=== PATIENT | female | born 1965 | race Caucasian/White ===

== ENCOUNTER 2019-08-10 14:03 | Inpatient (IN) | payer OTHER ==
--- NOTE | 2019-08-10 14:21 | PDOC ---
History of Present Illness - General Stated Complaint: FALL Time Seen by Provider: 08/10/19 14:21 History Source: Patient Exam Limitations: No Limitations - History of Present Illness Initial Comments: 08/10/19 14:21 Leda Summers is a 54F with PMH obesity, spinal degenerative changes and lumbar disc herniation, chronic lumbago with bilateral sciatica, poorly controlled IDDM c/b BLE neuropathy, incontinence, non-ambulatory, COPD, presenting with fall this morning. Patient woke up and attempted to get out of bed, felt dizzy like the world was spinning, fell to the floor while trying to sit up on her rolling walker. Attempted to get up from the floor using her walker and fell over 10 times, once hitting her face on her dresser on the left side, denies LOC. Denies any pain or other new injuries to the rest of her body. Was having blurry vision, was unable to check her blood sugar, pushed her emergency bracelet and EMS called. Per EMS report, BGM 43, given glucagon and D10 and BGM improved. Denies chest pain, SOB, palpitations, GOOD prior to fall. Currently reports face pain and lower back pain with sciatica, denies vision changes, GOOD, neck pain, abd pain, urinary sx. Says she has been having nausea and vomiting over the last few months, denies any possibility of . PMD Dr. Amaro Lives at home with [employer] and cat. Has had multiple MSK surgeries to her legs and shoulder from falls, last vascular surgery to legs February 2019. 32 years ago with oopharectomy for ovarian cyst. R cataract surgery. Longtime smoker, quit last year. Allergies to Toradol and ASA, says Percocet works well for pain. Past History - Past Medical History Allergies/Adverse Reactions: Allergies Allergy/AdvReac Type Severity Reaction Status Date / Time Sulfa (Sulfonamide Allergy Mild Difficulty Verified 08/10/19 15:15 Antibiotics) Breathing [Sulfa(Sulfonamide Antibiotics)] nitrofurantoin Allergy Difficulty Verified 08/10/19 15:15 macrocrystalline Breathing [From Macrodantin] pentazocine lactate Allergy Verified 08/10/19 15:15 [From Talwin] aripiprazole [From Abilify] AdvReac Swelling Verified 08/10/19 15:15 aspirin AdvReac gastric Verified 08/10/19 15:15 ulcer bupropion HCl AdvReac cognitive Verified 08/10/19 15:15 [From Wellbutrin] function ketorolac tromethamine AdvReac Difficulty Verified 08/10/19 15:15 [From Toradol] Breathing NSAIDS (Non-Steroidal AdvReac gastric Verified 08/10/19 15:15 Anti-Inflamma ulcers statin drugs AdvReac muscle pain Uncoded 08/10/19 15:15 Home Medications: Ambulatory Orders Clonazepam [Klonopin] 1 mg PO TID 12/31/14 Clopidogrel Bisulfate [Plavix -] 75 mg PO DAILY 12/31/14 Docusate Sodium [Colace -] 100 mg PO BID 12/31/14 Escitalopram Oxalate [Lexapro -] 10 mg PO DAILY 12/31/14 Gabapentin [Neurontin -] 600 mg PO BID 12/31/14 Metaxalone [Skelaxin] 800 mg PO TID PRN 12/31/14 Lisinopril [Prinivil -] 2.5 mg PO DAILY 07/06/15 Atomoxetine HCl [Strattera] 100 mg PO DAILY 11/13/15 Topiramate [Topamax] 100 mg PO BID 11/13/15 Colesevelam HCl 1,875 mg PO BID 08/10/19 Ezetimibe [Zetia] 10 mg PO DAILY 08/10/19 Insulin Degludec [Tresiba] 55 unit SQ DAILY 08/10/19 Semaglutide [Ozempic] 1 mg SQ WEEKLY 08/10/19 Cardiac Disorders: Yes COPD: Yes CHF: Yes Diabetes: Yes (on insulin, has neuropathy) GI Disorders: Yes HTN: No Seizures: No - Surgical History Cardiac Surgery: Yes (angioplasty) Orthopedic Surgery: Yes (rt shoulder tendon repair 12/23/14) - Psycho Social/Smoking Cessation Hx Smoking History: Current some day smoker Have you smoked in the past 12 months: Yes Number of Cigarettes Smoked Daily: 20 'Breaking Loose' booklet given: 08/05/15 (given previous visit) Hx Alcohol Use: No Drug/Substance Use Hx: Yes Substance Use Type: Marijuana Hx Substance Use Treatment: No (none) Review of Systems - Review of Systems Able to Perform ROS?: Yes Constitutional: No: Chills, Fever, Unexplained wgt Loss HEENTM: Yes: Blurred Vision. No: Hearing Loss Respiratory: Yes: Cough. No: Shortness of Breath Cardiac (ROS): Yes: Lightheadedness. No: Chest Pain, Irregular Heart Rate, Palpitations, Syncope, Chest Tightness ABD/GI: Yes: Nausea, Vomiting : No: Symptoms Reported Musculoskeletal: Yes: Back Pain, Muscle Pain. No: Neck Pain Integumentary: Yes: Bruising (L eye) Neurological: Yes: Numbness, Weakness, Unsteady Gait, Dizziness. No: Headache Endocrine: No: Symptoms Reported Hematologic/Lymphatic: No: Symptoms Reported All Other Systems: Reviewed and Negative *Physical Exam - Physical Exam General Appearance: Yes: Nourished, Appropriately Dressed, Obese. No: Apparent Distress HEENT: positive: EOMI, Normal Voice, Symmetrical, Pharynx Normal (adentulous), Hearing Grossly Normal, Other (bruising and swelling to L upper orbit, EOMI intact without visual deficit). negative: ZAY (R pupil fixed, s/p cataract surgery), Scleral Icterus (R), Scleral Icterus (L), Pharyngeal Erythema, Tonsillar Exudate, Tonsillar Erythema Neck: positive: Trachea midline, Normal Thyroid, Supple, Decreased range of motion. negative: Tender, Rigid, Lymphadenopathy (R), Lymphadenopathy (L), Tender lateral, Tender midline Respiratory/Chest: positive: Lungs Clear, Normal Breath Sounds. negative: Chest Tender, Respiratory Distress, Accessory Muscle Use, Crackles, Rales, Rhonchi, Stridor, Wheezing Cardiovascular: positive: Regular Rhythm, Regular Rate. negative: Murmur Gastrointestinal/Abdominal: positive: Normal Bowel Sounds, Soft, Protuberent. negative: Tender, Distended, Guarding Musculoskeletal: positive: Normal Inspection, CVA Tenderness, Vertebral Tenderness (lumbar ~L3) Extremity: positive: Normal Capillary Refill, Normal Range of Motion (full passive ROM at hip, knee, ankle), Tender (anterior thighs, no evidenceo f bony deformity), Pelvis Stable. negative: Normal Inspection, Pedal Edema, Swelling, Calf Tenderness Integumentary: positive: Normal Color, Dry, Warm Neurologic: positive: national sales manager II-XII NML intact, Fully Oriented, Alert, Normal Mood/ Affect, Normal Response, Sensory Deficit (decreased sensation to legs below knees compared to thigh, intact to LT). negative: Motor Strength 5/5 (BLE: able to move toes spontaneously, but 1/5 to hip/knee/ankle flexion/extension, DP pulses intact, cap refill good. BUE: normal exam, 5/5 strength) ED Treatment Course - LABORATORY CBC & Chemistry Diagram: 08/10/19 15:37 08/10/19 15:37 - ADDITIONAL ORDERS Additional order review: Laboratory Results 08/10/19 14:15 POC Glucometer 86 08/10/19 14:15 POC Glucometer 86 Medical Decision Making - Medical Decision Making 08/10/19 15:39 Patient has chronic history of lower back pain and sciatica along with poorly controlled IDDM with neuropathy and falls presents by ambulance for eval after multiple falls and head/face injury with EMS BGM 48. Concerned for metabolic/cardiac causes of weakness and dizziness. Facial bruising present with some facial tenderness, low suspicion of fx and no suturing needed, has not had tetanus. No neck pain. No acutely new neuro exam deficits, patient at reported neuro baseline. Has tenderness to lumbar spine. - CMP/CBC/Mg/Phos for eval lytes/infection - CP/CXR/ECG for cardiac eval of dizziness - CT head/c-spine/facial bones/lumbar for eval trauma - Pelvis XR for eval trauma - UA/UC for eval UTI as cause of dizziness - 10mg oxycodone and lidoderm patch for pain 08/10/19 16:36 Labs notable for: - WBC 10.8 - Glu 70, giving 12.5mg D50 - AP 118 - CK 211, consistent with prolonged time supine - BNP 146 - trop negative 08/10/19 16:37 ECG shows NSR with HR 75, QRS 86, QTc 464, no ischemic changes or TWI 08/10/19 17:58 CXR and XR pelvis show no abnormalities on preliminary read Pending CT scan read at this time. 08/10/19 20:29 CT shows no acute ICH or fractures of skull, face, c-spine, or pelvis. Discussed dispo with patient. Unsafe for her to go home despite her protests to feed her cat. Reluctantly agrees to stay to discuss her medications in the AM with Dr. Amaro. Will admit to Med-Surg to [facility] for AM Sondra joyneral. 08/10/19 20:40 Discussed case with sherley Holden for admit to [facility] service Med Surg. Discharge - Discharge Information Problems reviewed: Yes Clinical Impression/Diagnosis: Fall Qualifiers: Encounter type: initial encounter Qualified Code(s): W19.XXXA - Unspecified fall, initial encounter Chronic lower back pain Qualifiers: Back pain laterality: midline Sciatica presence: with sciatica Sciatica laterality: bilateral sciatica Qualified Code(s): M54.41 - Lumbago with sciatica , right side Facial injury Qualifiers: Encounter type: initial encounter Qualified Code(s): S09.93XA - Unspecified injury of face, initial encounter Condition: Stable - Follow up/Referral Referrals: Rishi Horan [Non Staff, Medical] - - Patient Discharge Instructions - Post Discharge Activity
[2019-08-10] MEDS ORDERED: GlUCAGON HUMAN RECOMBINANT 1 MG/VIAL ONE (14:26)
[2019-08-10] MEDS ORDERED: oxyCODONE HCL 5 MG TABLET PO ONE (15:13)
[2019-08-10] MEDS ORDERED: SODIUM CHLORIDE 1,000 ML IV STA (15:13)
[2019-08-10] MEDS ORDERED: DIPHTH,PERTUSS(ACELL),TET 0.5 ML DISP.SYRIN IM ONE ×2 (15:19→16:10)
--- NOTE | 2019-08-10 15:19 | PDOC ---
Documentation entered by Adrian Chino SCRIBE, acting as scribe for Elaine Munguia DO. Elaine Munguia, DO: This documentation has been prepared by the Matti astorga Nirvannie, SCRIBE, under my direction and personally reviewed by me in its entirety. I confirm that the documentation accurately reflects all work, treatment, procedures, and medical decision making performed by me. Attending Attestation - Resident Resident Name: Rich Joy - ED Attending Attestation I have performed the following: I have examined & evaluated the patient, The case was reviewed & discussed with the resident, I agree w/resident's findings & plan, Exceptions are as noted - HPI HPI: 08/10/19 15:12 The patient is a 54 year old female, with a significant past medical history of poorly controlled DM, diabetic neuropathy, COPD, sciatica, and chronic back pain , who presents to the emergency department via EMS s/p multiple falls. As per patient, she woke up this morning increasingly dizzy and attempting to get out of bed to her rollator when she fell approximately 10 times prompting her to call for EMS. She is unaware of what she hit her head on. She is unaware of her last tetanus shot. She denies any urinary or bowel incontinence. She denies recent chest pain or shortness of breath. She denies recent fevers, chills, headache or dizziness. She denies recent nausea, vomiting, diarrhea or constipation. She denies recent dysuria, frequency, urgency or hematuria. Allergies: As per nursing notes. Primary Care Physician: Dr. Amaro - Physicial Exam PE: 08/10/19 15:44 Constitutional: Awake, alert, oriented. No acute distress. Head: Normocephalic. +Left supraocular bruising. No eye involvement. Eyes: PERRL. EOMI. Conjunctivae are not pale. ENT: +Adentulous. +Dry mucous membranes. Posterior pharynx without exudates or erythema. Uvula midline. Neck: No paraspinal or midline cervical tenderness. Supple. Full ROM. No lymphadenopathy. Cardiovascular: Regular rate. Regular rhythm. S1, S2 regular. Distal pulses are 2+ and symmetric. Pulmonary/Chest: No evidence of respiratory distress. Clear to auscultation bilaterally No wheezing, rales or rhonchi. Abdominal: Soft and non-distended. There is no tenderness. No rebound, guarding or rigidity. No organomegaly. No palpable masses. Good bowel sounds. Back: +Midline lumbar spine tenderness. No CVA tenderness. Musculoskeletal: No edema. No cyanosis. No clubbing. No calf tenderness. Radial/pedal pulses are intact and 2+ bilaterally Skin: Skin is warm and dry. No petechiae. No purpura. Neurological: +Decreased strength to the blt LE. UE strength intact. Alert and oriented to person, place, and time. Cranial nerves II-XII are grossly intact. Normal speech. No sensory deficits. Psychiatric: Good eye contact. Normal interaction, affect and behavior. - Medical Decision Making 08/10/19 15:17 a/p: 54yo female with multiple falls this am -pt with head injury, loc, facial hematoma, neck pain and lbp -pt with chronic weakness to b/l LE and decreased sensation below the knees b/l which is chronic -pt uses a rollator walker with a seat -pt with multiple complaints of weakness and hx of herniated discs in her back -pt with chronic pain -pt arrives with borderline bp and dry mm -will send labs, will obtain imaging, will give ivf hydration -will update tetanus 08/10/19 15:20 pt with low blood glu in field, received glucagon suspect multiple falls from hypoglycemia but now with closed head injury and facial hematoma 08/10/19 16:26 cbc reviewed and stable chem pending 08/10/19 16:35 glu 70 labs reviewed will straight cath for urine pt pending imaging will give 1/2 amp d50 for glu Heart Score/ECG Review - ECG Intrepretation Comment:: 08/10/19 16:04 sinus at 75, nl axis, nl interval, t wave flattening diffusely, no acute st changes
[2019-08-10] MEDS ORDERED: LIDOCAINE 5% TOPICAL PATCH TP ONE (15:47)
[2019-08-10] MEDS ORDERED: oxyCODONE HCL 5 MG TABLET ONE (15:50)
[2019-08-10 16:03] LABS: BASO % 0.5 % (0-2.0); EOS % 0.2 % (0-4.5); HEMATOCRIT 35.8 % (32.4-45.2); HEMOGLOBIN 11.6 GM/dL (10.7-15.3); LYMPH % 21.5 % (8-40); MCH 27.1 pg (25.7-33.7); MCHC 32.3 g/dl (32.0-36.0); MEAN PLT VOLUME 10.3 fl (7.5-11.1); MONO % 6.9 % (3.8-10.2); NEUT % 70.9 % (42.8-82.8); PLATELET COUNT 194 K/MM3 (134-434); RBC 4.26 M/mm3 (3.60-5.2); RDW 15.1 % (11.6-15.6); WHITE BLOOD COUNT 10.8 K/mm3 (4.0-10.0)
[2019-08-10] MEDS ORDERED: LIDOCAINE 5% TOPICAL PATCH ONE (16:10)
[2019-08-10 16:17] LABS: INR 1.06 (0.83-1.09); PROTHROMBIN TIME (PATIENT) 12.5 SEC (9.7-13.0)
[2019-08-10 16:20] LABS: ACTIVATED PTT 31.9 SECONDS (25.2-36.5)
[2019-08-10 16:27] LABS: ALBUMIN 3.3 g/dl (3.4-5.0); ALK PHOS 118 U/L (45-117); ANION GAP 6 MMOL/L (8-16); BILIRUBIN,TOTAL 0.3 mg/dL (0.2-1); BLOOD UREA NITROGEN 13.8 mg/dL (7-18); CALCIUM 9.2 mg/dL (8.5-10.1); CHLORIDE 108 mmol/L (98-107); CO2 24 mmol/L (21-32); CREATININE 0.8 mg/dL (0.55-1.3); GLUCOSE,RANDOM 70 mg/dL (74-106); MAGNESIUM 2.2 mg/dL (1.8-2.4); PHOSPHOROUS 2.7 mg/dL (2.5-4.9); SGOT/AST 19 U/L (15-37); SGPT/ALT 18 U/L (13-61); SODIUM 138 mmol/L (136-145); TOT PROT 6.6 g/dl (6.4-8.2)
[2019-08-10] MEDS ORDERED: DEXTROSE 50%-WATER - 25 GM/50 ML VIAL IVPUSH ONE (16:35)
[2019-08-10] MEDS ORDERED: DEXTROSE 50%-WATER - 25 GM/50 ML VIAL ONE (16:38)
[2019-08-10 19:07] LABS: PH,URINE 7.5 (5.0-8.0); URINE APPEARANCE Cloudy; URINE BILIRUBIN Negative (NEGATIVE); URINE COLOR Yellow; URINE GLUCOSE (UA) Negative (NEGATIVE); URINE KETONE Trace (NEGATIVE); URINE LEUK ESTERASE 1+ (NEGATIVE); URINE NITRITE Negative (NEGATIVE); URINE PROTEIN Trace (NEGATIVE); URINE UROBILINOGEN 0.2 mg/dL (0.2-1.0)
[2019-08-10 19:19] LABS: EPI CELLS 7.2 /HPF (0-5/HPF); HYALINE CASTS 44.08 /lpf (0-8); URINE BACTERIA 12696.9 /hpf (NEGATIVE); URINE RBC 26.5 /hpf (0-4); URINE WBC 13.8 /hpf (0-5)
[2019-08-10] MEDS ORDERED: METHOCARBAMOL 750 MG TABLET PO ONE (20:09)
[2019-08-10] MEDS ORDERED: METHOCARBAMOL 500 MG TABLET ONE (20:16)
--- NOTE | 2019-08-10 20:55 | HP ---
Admitting History and Physical - Primary Care Physician PCP: Karthik Amaro - Admission Chief Complaint: s/p Fall, Generalized Pain, Unable to Ambulate History of Present Illness: This is a 54 y/o woman with a PMHx of obesity, spinal degenerative changes and lumbar disc herniation, chronic lumbago with bilateral sciatica, poorly controlled IDDM c/b BLE neuropathy, incontinence, non-ambulatory, COPD. Who presents to the ED s/p Fall, unable to ambulate, pain. Patient reports waking up this morning feeling increasingly dizzy, attempting to get out of bed to her rollator, when she fell approximately 10 times prompting her to call for EMS. She reports not being able to get herself up from the floor. She is unaware of what she hit her head on. She is unaware of her last tetanus shot. She denies any urinary or bowel incontinence. She denies recent chest pain or shortness of breath. She denies recent fevers, chills, headache or dizziness. She denies recent nausea, vomiting, diarrhea or constipation. She denies recent dysuria, frequency, urgency or hematuria. History Source: Patient Limitations to Obtaining History: Clinical Condition, Poor Historian - Past Medical History Pulmonary: Yes: COPD Musculoskeletal: Yes: Chronic low back pain, Other Endocrine: Yes: Diabetes Mellitus - Smoking History Smoking history: Current some day smoker Have you smoked in the past 12 months: Yes Aproximately how many cigarettes per day: 20 If you are a former smoker, when did you quit?: 04/03/2019 - Alcohol/Substance Use Hx Alcohol Use: No History of Substance Use: reports: None - Social History Usual Living Arrangement: Yes: Alone ADL: Support Services ([employer]) History of Recent Travel: No Home Medications - Allergies Allergies/Adverse Reactions: Allergies Allergy/AdvReac Type Severity Reaction Status Date / Time Sulfa (Sulfonamide Allergy Mild Difficulty Verified 08/10/19 15:15 Antibiotics) Breathing [Sulfa(Sulfonamide Antibiotics)] nitrofurantoin Allergy Difficulty Verified 08/10/19 15:15 macrocrystalline Breathing [From Macrodantin] pentazocine lactate Allergy Verified 08/10/19 15:15 [From Talwin] aripiprazole [From Abilify] AdvReac Swelling Verified 08/10/19 15:15 aspirin AdvReac gastric Verified 08/10/19 15:15 ulcer bupropion HCl AdvReac cognitive Verified 08/10/19 15:15 [From Wellbutrin] function ketorolac tromethamine AdvReac Difficulty Verified 08/10/19 15:15 [From Toradol] Breathing NSAIDS (Non-Steroidal AdvReac gastric Verified 08/10/19 15:15 Anti-Inflamma ulcers statin drugs AdvReac muscle pain Uncoded 08/10/19 15:15 - Home Medications Home Medications: Ambulatory Orders Clonazepam [Klonopin] 1 mg PO TID 12/31/14 Clopidogrel Bisulfate [Plavix -] 75 mg PO DAILY 12/31/14 Docusate Sodium [Colace -] 100 mg PO BID 12/31/14 Escitalopram Oxalate [Lexapro -] 10 mg PO DAILY 12/31/14 Gabapentin [Neurontin -] 600 mg PO BID 12/31/14 Metaxalone [Skelaxin] 800 mg PO TID PRN 12/31/14 Lisinopril [Prinivil -] 2.5 mg PO DAILY 07/06/15 Atomoxetine HCl [Strattera] 100 mg PO DAILY 11/13/15 Topiramate [Topamax] 100 mg PO BID 11/13/15 Colesevelam HCl 1,875 mg PO BID 08/10/19 Ezetimibe [Zetia] 10 mg PO DAILY 08/10/19 Insulin Degludec [Tresiba] 55 unit SQ DAILY 08/10/19 Semaglutide [Ozempic] 1 mg SQ WEEKLY 08/10/19 Family Medical History Family History: Unable to Obtain Review of Systems - Review of Systems Constitutional: reports: Weakness Eyes: reports: No Symptoms HENT: reports: No Symptoms Neck: reports: No Symptoms Cardiovascular: reports: No Symptoms Respiratory: reports: No Symptoms Gastrointestinal: reports: No Symptoms Genitourinary: reports: No Symptoms Breasts: reports: No Symptoms Reported Musculoskeletal: reports: Back Pain, Extremity Pain, Joint Pain, Muscle Pain Integumentary: reports: Bruising Neurological: reports: Unsteady Gait, Weakness Endocrine: reports: No Symptoms Hematology/Lymphatic: reports: No Symptoms Psychiatric: reports: No Symptoms Pain Intensity: 7 Physical Examination Vital Signs: Vital Signs Temperature 98.2 F 08/10/19 18:29 Pulse Rate 86 08/10/19 18:29 Respiratory Rate 18 08/10/19 18:29 Blood Pressure 118/51 L 08/10/19 18:29 O2 Sat by Pulse Oximetry (%) 100 08/10/19 18:29 Constitutional: Yes: Anxious, Mild Distress, Obese, Poor Hygeine Eyes: Yes: WNL, Conjunctiva Clear, EOM Intact, PERRL HENT: Yes: Other (ecchymotic brusing to left forehead) Cardiovascular: Yes: Regular Rate and Rhythm, S1, S2 Respiratory: Yes: Diminished Gastrointestinal: Yes: WNL, Normal Bowel Sounds, Soft, Abdomen, Obese ...Rectal Exam: Yes: Deferred Renal/: Yes: WNL Breast(s): Yes: WNL Musculoskeletal: Yes: Back Pain, Muscle Pain, Muscle Weakness Extremities: Yes: WNL Edema: No Peripheral Pulses WNL: Yes Integumentary: Yes: Bruising Neurological: Yes: Alert, Oriented, Cran Nerves II-XII Intact ...Motor Strength: LUE (4/5), LLE (2/5), RUE (4/5), RLE (2/5) Psychiatric: Yes: Alert, Oriented, Other (Flat Affect) Labs: CBC, BMP 08/10/19 15:37 08/10/19 15:37 Laboratory Results - last 24 hr 08/10/19 08/10/19 08/10/19 14:15 15:37 15:37 WBC 10.8 H RBC 4.26 Hgb 11.6 Hct 35.8 MCV 84.0 MCH 27.1 MCHC 32.3 RDW 15.1 Plt Count 194 MPV 10.3 D Absolute Neuts (auto) 7.6 Neutrophils % 70.9 Lymphocytes % 21.5 Monocytes % 6.9 Eosinophils % 0.2 Basophils % 0.5 Nucleated RBC % 0 PT with INR INR PTT (Actin FS) Sodium 138 Potassium 4.0 Chloride 108 H Carbon Dioxide 24 Anion Gap 6 L BUN 13.8 Creatinine 0.8 Est GFR (CKD-EPI)AfAm 95.52 Est GFR (CKD-EPI)NonAf 82.42 POC Glucometer 86 Random Glucose 70 L Calcium 9.2 Phosphorus 2.7 Magnesium 2.2 Total Bilirubin 0.3 AST 19 ALT 18 Alkaline Phosphatase 118 H Creatine Kinase 211 H Creatine Kinase Index 1.3 CK-MB (CK-2) 2.9 Troponin I < 0.02 B-Natriuretic Peptide Total Protein 6.6 Albumin 3.3 L Urine Color Urine Appearance Urine pH Ur Specific [place] Urine Protein Urine Glucose (UA) Urine Ketones Urine Blood Urine Nitrite Urine Bilirubin Urine Urobilinogen Ur Leukocyte Esterase Urine WBC (Auto) Urine RBC (Auto) Urine Casts (Auto) U Pathogenic Cast Auto U Epithel Cells (Auto) U Sm Round Cell (Auto) Urine Bacteria (Auto) 08/10/19 08/10/19 08/10/19 15:37 15:37 18:33 WBC RBC Hgb Hct MCV MCH MCHC RDW Plt Count MPV Absolute Neuts (auto) Neutrophils % Lymphocytes % Monocytes % Eosinophils % Basophils % Nucleated RBC % PT with INR 12.50 INR 1.06 PTT (Actin FS) 31.9 Sodium Potassium Chloride Carbon Dioxide Anion Gap BUN Creatinine Est GFR (CKD-EPI)AfAm Est GFR (CKD-EPI)NonAf POC Glucometer Random Glucose Calcium Phosphorus Magnesium Total Bilirubin AST ALT Alkaline Phosphatase Creatine Kinase Creatine Kinase Index CK-MB (CK-2) Troponin I B-Natriuretic Peptide 146.8 H Total Protein Albumin Urine Color Yellow Urine Appearance Cloudy Urine pH 7.5 D Ur Specific [place] 1.015 Urine Protein Trace Urine Glucose (UA) Negative Urine Ketones Trace Urine Blood Negative Urine Nitrite Negative Urine Bilirubin Negative Urine Urobilinogen 0.2 Ur Leukocyte Esterase 1+ H Urine WBC (Auto) 13.8 Urine RBC (Auto) 26.5 Urine Casts (Auto) 44.08 U Pathogenic Cast Auto none U Epithel Cells (Auto) 7.2 U Sm Round Cell (Auto) none Urine Bacteria (Auto) 51005.9 Intake & Output 08/08/19 08/09/19 08/10/19 08/11/19 23:59 23:59 23:59 23:59 Intake Total 300 Output Total 75 Balance -75 300 Weight 89.358 kg 106.458 kg Current Medications Generic Name Dose Route Start Last Admin Trade Name Freq PRN Reason Stop Dose Admin Acetaminophen 650 mg 08/11/19 08:57 Tylenol - PO Q6H PRN PAIN LEVEL 4 - 6 Clonazepam 1 mg 08/11/19 14:00 Klonopin - PO TID JAYCEE Clopidogrel Bisulfate 75 mg 08/11/19 10:00 08/11/19 09:40 Plavix - PO 75 mg DAILY JAYCEE Administration Docusate Sodium 100 mg 08/11/19 10:00 08/11/19 09:45 Colace - PO 100 mg BID JAYCEE Administration Ezetimibe 10 mg 08/11/19 10:00 08/11/19 09:45 Zetia - PO 10 mg DAILY JAYCEE Administration Escitalopram Oxalate 10 mg 08/11/19 10:00 08/11/19 09:43 Lexapro - PO 10 mg DAILY JAYCEE Administration Gabapentin 600 mg 08/11/19 10:00 08/11/19 09:41 Neurontin - PO 600 mg BID JAYCEE Administration Insulin Aspart 1 vial 08/11/19 11:00 Novolog Vial Sliding Scale - SQ ACHS JAYCEE Protocol Lidocaine 1 patch 08/11/19 10:00 08/11/19 09:43 Lidoderm Patch - TP 1 patch DAILY JAYCEE Administration Lisinopril 2.5 mg 08/11/19 10:00 08/11/19 09:40 Prinivil PO 2.5 mg DAILY JAYCEE Administration Miscellaneous 1 each 08/11/19 22:00 Lidoderm Patch Removal MC DAILY@2200 JAYCEE Non-Formulary Medication 800 mg 08/11/19 08:24 Metaxalone [Skelaxin] PO TID PRN MUSCLE SPASMS Topiramate 100 mg 08/11/19 10:00 08/11/19 09:44 Topamax - PO 100 mg BID JAYCEE Administration Imaging - Results Chest X-ray: Image Reviewed X-ray: Image Reviewed Cat Scan: Image Reviewed EKG: Image Reviewed Problem List - Problems (1) Fall Code(s): W19.XXXA - UNSPECIFIED FALL, INITIAL ENCOUNTER Qualifiers: Encounter type: initial encounter Qualified Code(s): W19.XXXA - Unspecified fall, initial encounter (2) Generalized weakness Code(s): R53.1 - WEAKNESS (3) Facial injury Code(s): S09.93XA - UNSPECIFIED INJURY OF FACE, INITIAL ENCOUNTER Qualifiers: Encounter type: initial encounter Qualified Code(s): S09.93XA - Unspecified injury of face, initial encounter (4) Chronic lower back pain Code(s): M54.5 - LOW BACK PAIN; G89.29 - OTHER CHRONIC PAIN Qualifiers: Back pain laterality: midline Sciatica presence: with sciatica Sciatica laterality: bilateral sciatica Qualified Code(s): M54.41 - Lumbago with sciatica, right side; M54.42 - Lumbago with sciatica, left side; G89.29 - Other chronic pain (5) Anxiety disorder Code(s): F41.9 - ANXIETY DISORDER, UNSPECIFIED (6) Degenerative cervical spinal stenosis Code(s): M48.02 - SPINAL STENOSIS, CERVICAL REGION (7) Neuropathy Code(s): G62.9 - POLYNEUROPATHY, UNSPECIFIED (8) COPD (chronic obstructive pulmonary disease) Code(s): J44.9 - CHRONIC OBSTRUCTIVE PULMONARY DISEASE, UNSPECIFIED (9) Fibromyalgia Code(s): M79.7 - FIBROMYALGIA (11) Bipolar disorder Code(s): F31.9 - BIPOLAR DISORDER, UNSPECIFIED (12) Osteoarthritis Code(s): M19.90 - UNSPECIFIED OSTEOARTHRITIS, UNSPECIFIED SITE (13) Nicotine dependence Code(s): F17.200 - NICOTINE DEPENDENCE, UNSPECIFIED, UNCOMPLICATED Assessment/Plan This is a 54 y/o woman with a PMHx of poorly controlled DM, Diabetic Neuropathy , COPD, Sciatica, Chronic Back pain. Admitted for Generalized Weakness, s/p Fall Unsteady Gait, Chronic Back Pain for further evaluation of their emergent condition. Plan: Admit s/p fall secondary Likely due to generalized weakness vs hypoglycemic event vs diabetic neuropathy Head CT- neg ICH, mass or trauma C- Spine- neg fx, subluxation Hip/Pelvis Xray- neg fx PT eval Case Management for STR or SNF- pt lives alone has [employer] for 30hrs/week Neuro checks Neuro vascular checks Fall precautions Consider Spine consult- hx herniated discs, increased weakness Monitor CBC, BMP Monitor vitals Continue home meds O2 Duonebs BGMs ISS Low na, Diabetic Diet DVT ppx- OOB, SCDs, Heparin SQ Dispo: Requires Inpatient Care Visit type - Emergency Visit Emergency Visit: Yes ED Registration Date: 08/10/19 Care time: The patient presented to the Emergency Department on the above date and was hospitalized for further evaluation of their emergent condition. - New Patient This patient is new to me today: Yes Date on this admission: 08/10/19 - Critical Care Critical Care patient: No
[2019-08-10] MEDS ORDERED: LIDOCAINE PATCH REMOVAL MC SCH (22:00)
[2019-08-10] MEDS ORDERED: ACETAMINOPHEN 325 MG TABLET (FP) PO ONE (22:20)
[2019-08-11 01:41] VITALS: BMI 39.2
[2019-08-11] MEDS ORDERED: LIDOCAINE PATCH REMOVAL MC ONE (04:00)
[2019-08-11] MEDS ORDERED: oxyCODONE HCL 5 MG TABLET PO ONE (04:30)
[2019-08-11 07:29] LABS: BASO % 0.6 % (0-2.0); EOS % 0.6 % (0-4.5); HEMATOCRIT 34.5 % (32.4-45.2); HEMOGLOBIN 11.3 GM/dL (10.7-15.3); LYMPH % 28.9 % (8-40); MCH 27.3 pg (25.7-33.7); MCHC 32.6 g/dl (32.0-36.0); MEAN CELL VOLUME 83.5 fl (80-96); MONO % 9.3 % (3.8-10.2); NEUT % 60.6 % (42.8-82.8); PLATELET COUNT 185 K/MM3 (134-434); RBC 4.14 M/mm3 (3.60-5.2); RDW 15.4 % (11.6-15.6); WHITE BLOOD COUNT 8.6 K/mm3 (4.0-10.0)
[2019-08-11 07:42] LABS: CALCIUM 9.2 mg/dL (8.5-10.1); POTASSIUM 4.7 mmol/L (3.5-5.1)
[2019-08-11] MEDS ORDERED: PATIENT'S OWN MEDICATION (NON-FORMULARY) (Metaxalone [Skelaxin] 800 MG) PO PRN (08:24)
--- NOTE | 2019-08-11 08:50 | PN ---
Progress Note, Physician Chief Complaint: Fall Chronic Lower Back Pain History of Present Illness: Previous notes and events reviewed awake and alert NAD denies dizziness complain of cervical tenderness denies chest pain or SOB - Current Medication List Current Medications: Active Medications Clopidogrel Bisulfate (Plavix -) 75 mg PO DAILY [facility] Docusate Sodium (Colace -) 100 mg PO BID [facility] Ezetimibe (Zetia -) 10 mg PO DAILY [facility] Escitalopram Oxalate (Lexapro -) 10 mg PO DAILY [facility] Gabapentin (Neurontin -) 600 mg PO BID [facility] Insulin Aspart (Novolog Vial Sliding Scale -) 1 vial SQ ACHS JAYCEE; Protocol Non-Formulary Medication (Clonazepam [Klonopin]) 1 mg PO TID [facility] Non-Formulary Medication (Lisinopril [Prinivil -]) 2.5 mg PO DAILY [facility] Non-Formulary Medication (Metaxalone [Skelaxin]) 800 mg PO TID PRN PRN Reason: MUSCLE SPASMS Topiramate (Topamax -) 100 mg PO BID [facility] - Objective Vital Signs: Vital Signs Temperature 97.7 F 08/11/19 07:31 Pulse Rate 91 H 08/11/19 07:31 Respiratory Rate 20 08/11/19 07:31 Blood Pressure 113/91 08/11/19 07:31 O2 Sat by Pulse Oximetry (%) 96 08/11/19 01:42 Constitutional: Yes: No Distress, Calm, Obese Eyes: Yes: Conjunctiva Clear, Other (L periorbital ecchymosis and tenderness) Neck: Yes: Other (cervical tenderness) Cardiovascular: Yes: Regular Rate and Rhythm Respiratory: Yes: Regular, CTA Bilaterally Gastrointestinal: Yes: Normal Bowel Sounds, Soft, Abdomen, Obese Genitourinary: Yes: Incontinence Musculoskeletal: Yes: Muscle Weakness Extremities: Yes: WNL Edema: No Neurological: Yes: Alert, Oriented Psychiatric: Yes: Alert, Oriented Labs: CBC, BMP 08/11/19 06:20 08/11/19 06:20 INR, PTT INR 1.06 (0.83-1.09) 08/10/19 15:37 Problem List - Problems (1) Chronic lower back pain Assessment/Plan: -Lidocaine patch -Fall precaution -PT -pain control -Lumbar CT scan result pending Code(s): M54.5 - LOW BACK PAIN; G89.29 - OTHER CHRONIC PAIN Qualifiers: Back pain laterality: midline Sciatica presence: with sciatica Sciatica laterality: bilateral sciatica Qualified Code(s): M54.41 - Lumbago with sciatica, right side; M54.42 - Lumbago with sciatica, left side; G89.29 - Other chronic pain (2) Facial injury Assessment/Plan: -Facial CT scan results pending -Head CT scan results pending -pain control -neuro checks q4h to monitor for neuro deficit Code(s): S09.93XA - UNSPECIFIED INJURY OF FACE, INITIAL ENCOUNTER Qualifiers: Encounter type: initial encounter Qualified Code(s): S09.93XA - Unspecified injury of face, initial encounter (3) Fall Assessment/Plan: -Fall precautions -PT -neuro checks q4h -UC pending Code(s): W19.XXXA - UNSPECIFIED FALL, INITIAL ENCOUNTER Qualifiers: Encounter type: initial encounter Qualified Code(s): W19.XXXA - Unspecified fall, initial encounter (4) Anxiety disorder Assessment/Plan: -Klonopin TID -Lexapro Code(s): F41.9 - ANXIETY DISORDER, UNSPECIFIED (5) COPD (chronic obstructive pulmonary disease) Assessment/Plan: -O2 via NC -keep SpO2 >90% -bronchodilators prn Code(s): J44.9 - CHRONIC OBSTRUCTIVE PULMONARY DISEASE, UNSPECIFIED (6) IDDM Assessment/Plan: -BGM ACHS -ISS -Tresiba -HgA1c -diabetic diet Assessment/Plan see problem list dvt ppx
[2019-08-11] MEDS ORDERED: ACETAMINOPHEN 325 MG TABLET (FP) PO PRN (08:57)
[2019-08-11] MEDS: LISINOPRIL 5 MG TABLET (FP) PO SCH (09:40)
[2019-08-11] MEDS: CLOPIDOGREL BISULFATE 75 MG TABLET (FP) PO SCH (09:40)
[2019-08-11] MEDS: GABAPENTIN 300 MG CAPSULE PO SCH ×2 (09:41→22:47)
[2019-08-11] MEDS: LIDOCAINE 5% TOPICAL PATCH TP SCH (09:43)
[2019-08-11] MEDS: ESCITALOPRAM OXALATE 10 MG TABLET PO SCH (09:43)
[2019-08-11] MEDS: TOPIRAMATE 100 MG TABLET PO SCH ×2 (09:44→22:47)
[2019-08-11] MEDS: DOCUSATE SODIUM 100 MG CAPSULE (FP) PO SCH ×2 (09:45→22:48)
[2019-08-11] MEDS: EZETIMIBE 10 MG TABLET (FP) PO SCH (09:45)
[2019-08-11] MEDS: INSULIN SLIDING SCALE (NOVOLOG) 1 VIAL SQ SCH ×3 (12:29→22:57)
--- NOTE | 2019-08-11 12:35 | EKG ---
Test Reason : Blood Pressure : / mmHG Vent. Rate : 075 BPM Atrial Rate : 075 BPM P-R Int : 148 ms QRS Dur : 086 ms QT Int : 416 ms P-R-T Axes : 064 069 053 degrees QTc Int : 464 ms POOR DATA QUALITY, INTERPRETATION MAY BE ADVERSELY AFFECTED NORMAL SINUS RHYTHM NONSPECIFIC ST AND T WAVE ABNORMALITY ABNORMAL ECG WHEN COMPARED WITH ECG OF 24-SEP-2010 10:31, NO SIGNIFICANT CHANGE WAS FOUND Confirmed by LELIA LIZARRAGA MD ([id number]) on 08/11/2019 12:35:23 PM Referred By: Confirmed By:LELIA LIZARRAGA MD
[2019-08-11] MEDS: clonazePAM 0.5 MG TABLET PO SCH ×2 (15:15→22:47)
--- NOTE | 2019-08-11 16:44 | CON.ORTH ---
Consult Reason for Consultation:: lbp, neck pain - Past Medical History Pulmonary: Yes: COPD Musculoskeletal: Yes: Chronic low back pain, Other Endocrine: Yes: Diabetes Mellitus - Alcohol/Substance Use Hx Alcohol Use: No History of Substance Use: reports: None - Smoking History Smoking history: Current some day smoker Have you smoked in the past 12 months: Yes Aproximately how many cigarettes per day: 20 If you are a former smoker, when did you quit?: 04/03/2019 - Social History ADL: Support Services ([facility]) History of Recent Travel: No Home Medications - Allergies Allergies/Adverse Reactions: Allergies Allergy/AdvReac Type Severity Reaction Status Date / Time Sulfa (Sulfonamide Allergy Mild Difficulty Verified 08/10/19 15:15 Antibiotics) Breathing [Sulfa(Sulfonamide Antibiotics)] nitrofurantoin Allergy Difficulty Verified 08/10/19 15:15 macrocrystalline Breathing [From Macrodantin] pentazocine lactate Allergy Verified 08/10/19 15:15 [From Talwin] aripiprazole [From Abilify] AdvReac Swelling Verified 08/10/19 15:15 aspirin AdvReac gastric Verified 08/10/19 15:15 ulcer bupropion HCl AdvReac cognitive Verified 08/10/19 15:15 [From Wellbutrin] function ketorolac tromethamine AdvReac Difficulty Verified 08/10/19 15:15 [From Toradol] Breathing NSAIDS (Non-Steroidal AdvReac gastric Verified 08/10/19 15:15 Anti-Inflamma ulcers statin drugs AdvReac muscle pain Uncoded 08/10/19 15:15 - Home Medications Home Medications: Ambulatory Orders Clonazepam [Klonopin] 1 mg PO TID 12/31/14 Clopidogrel Bisulfate [Plavix -] 75 mg PO DAILY 12/31/14 Docusate Sodium [Colace -] 100 mg PO BID 12/31/14 Escitalopram Oxalate [Lexapro -] 10 mg PO DAILY 12/31/14 Gabapentin [Neurontin -] 600 mg PO BID 12/31/14 Metaxalone [Skelaxin] 800 mg PO TID PRN 12/31/14 Lisinopril [Prinivil -] 2.5 mg PO DAILY 07/06/15 Atomoxetine HCl [Strattera] 100 mg PO DAILY 11/13/15 Topiramate [Topamax] 100 mg PO BID 11/13/15 Colesevelam HCl 1,875 mg PO BID 08/10/19 Ezetimibe [Zetia] 10 mg PO DAILY 08/10/19 Insulin Degludec [Tresiba] 55 unit SQ DAILY 08/10/19 Semaglutide [Ozempic] 1 mg SQ WEEKLY 08/10/19 Metoprolol Succinate [Toprol Xl] 12.5 mg PO DAILY 08/11/19 Physical Exam for Ortho Vital Signs: Vital Signs Temperature 98.0 F 08/11/19 15:00 Pulse Rate 101 H 08/11/19 15:00 Respiratory Rate 08/11/19 15:00 Blood Pressure 106/69 08/11/19 15:00 O2 Sat by Pulse Oximetry (%) 96 08/11/19 01:42 Labs: CBC, BMP 08/11/19 06:20 08/11/19 06:20 INR, PTT INR 1.06 (0.83-1.09) 08/10/19 15:37 - Lower Extremity Hip: Yes: Right, Pain, Other (equal limb lengths) Imaging - Results X-ray: Report Reviewed, Image Reviewed Cat Scan: Report Reviewed, Image Reviewed Assessment/Plan 54 y/o woman with a PMHx of obesity, spinal degenerative changes and lumbar disc herniation, chronic lumbago with bilateral sciatica, poorly controlled IDDM , BLE neuropathy, incontinence, non-ambulatory, COPD. Who presents to the ED s/ p Fall, unable to ambulate, pain. Patient reports waking up this morning feeling increasingly dizzy, attempting to get out of bed to her rollator, when she fell approximately 10 times prompting her to call for EMS. She reports not being able to get herself up from the floor. She is unaware of what she hit her head on.She denies any urinary or bowel incontinence. She denies recent chest pain or shortness of breath. She denies recent fevers, chills, headache or dizziness. She denies recent nausea, vomiting, diarrhea or constipation. She denies recent dysuria, frequency, urgency or hematuria. a/p chronic cervical and lumbar pain No acute pathology Pain management consult PT eval re-consult prn d/w Dr. Prabhakar
[2019-08-11] MEDS ORDERED: MIRTAZAPINE 15 MG TABLET (FP) PO SCH (22:30)
[2019-08-11] MEDS: LIDOCAINE PATCH REMOVAL MC SCH (23:05)
[2019-08-12] MEDS ORDERED: ONDANSETRON 4 MG/2 ML VIAL IVPUSH PRN (00:50)
[2019-08-12] MEDS: clonazePAM 0.5 MG TABLET PO SCH ×3 (06:45→22:34)
[2019-08-12] MEDS: INSULIN SLIDING SCALE (NOVOLOG) 1 VIAL SQ SCH ×4 (06:51→22:35)
[2019-08-12 07:56] LABS: HEMATOCRIT 35.1 % (32.4-45.2); HEMOGLOBIN 11.3 GM/dL (10.7-15.3); MCH 27.1 pg (25.7-33.7); MCHC 32.1 g/dl (32.0-36.0); MEAN CELL VOLUME 84.4 fl (80-96); MEAN PLT VOLUME 10.4 fl (7.5-11.1); PLATELET COUNT 183 K/MM3 (134-434); RBC 4.16 M/mm3 (3.60-5.2); RDW 15.1 % (11.6-15.6); WHITE BLOOD COUNT 7.7 K/mm3 (4.0-10.0)
[2019-08-12 08:28] LABS: BILIRUBIN,TOTAL 0.9 mg/dL (0.2-1); BLOOD UREA NITROGEN 15.4 mg/dL (7-18); POTASSIUM 3.9 mmol/L (3.5-5.1); TOT PROT 6.4 g/dl (6.4-8.2)
[2019-08-12] MEDS ORDERED: PATIENT'S OWN MEDICATION (NON-FORMULARY) (Semaglutide [Ozempic] 1 MG) SQ SCH (09:00)
--- NOTE | 2019-08-12 09:27 | DS ---
Physical Examination Vital Signs: Vital Signs Temperature 98 F 08/12/19 06:00 Pulse Rate 71 08/12/19 06:00 Respiratory Rate 20 08/12/19 06:00 Blood Pressure 108/60 08/12/19 06:00 O2 Sat by Pulse Oximetry (%) 95 08/11/19 20:32 Findings/Remarks: Laboratory Results - last 24 hr 08/11/19 08/11/19 08/11/19 11:47 17:58 22:49 WBC RBC Hgb Hct MCV MCH MCHC RDW Plt Count MPV Sodium Potassium Chloride Carbon Dioxide Anion Gap BUN Creatinine Est GFR (CKD-EPI)AfAm Est GFR (CKD-EPI)NonAf POC Glucometer 159 244 243 Random Glucose Hemoglobin A1c % Calcium Total Bilirubin AST ALT Alkaline Phosphatase Total Protein Albumin 08/12/19 08/12/19 08/12/19 06:45 06:45 06:45 WBC 7.7 RBC 4.16 Hgb 11.3 Hct 35.1 MCV 84.4 MCH 27.1 MCHC 32.1 RDW 15.1 Plt Count 183 MPV 10.4 Sodium 139 Potassium 3.9 Chloride 108 H Carbon Dioxide 25 Anion Gap 7 L BUN 15.4 Creatinine 1.0 Est GFR (CKD-EPI)AfAm 72.93 Est GFR (CKD-EPI)NonAf 62.93 POC Glucometer Random Glucose 121 H Hemoglobin A1c % 5.7 Calcium 10.0 Total Bilirubin 0.9 AST 16 ALT 17 Alkaline Phosphatase 112 Total Protein 6.4 Albumin 3.0 L 08/12/19 06:50 WBC RBC Hgb Hct MCV MCH MCHC RDW Plt Count MPV Sodium Potassium Chloride Carbon Dioxide Anion Gap BUN Creatinine Est GFR (CKD-EPI)AfAm Est GFR (CKD-EPI)NonAf POC Glucometer 133 Random Glucose Hemoglobin A1c % Calcium Total Bilirubin AST ALT Alkaline Phosphatase Total Protein Albumin Home Medication List Medication Instructions Recorded Confirmed Type Clonazepam [Klonopin] 1 mg PO TID 12/31/14 08/10/19 History Clopidogrel Bisulfate [Plavix -] 75 mg PO DAILY 12/31/14 08/11/19 History Docusate Sodium [Colace -] 100 mg PO BID 12/31/14 08/10/19 History Escitalopram Oxalate [Lexapro -] 10 mg PO DAILY 12/31/14 08/11/19 History Gabapentin [Neurontin -] 600 mg PO BID 12/31/14 08/11/19 History Metaxalone [Skelaxin] 800 mg PO TID PRN 12/31/14 08/10/19 History Lisinopril [Prinivil -] 2.5 mg PO DAILY 07/06/15 08/11/19 History Atomoxetine HCl [Strattera] 100 mg PO DAILY 11/13/15 08/10/19 History Topiramate [Topamax -] 100 mg PO BID 11/13/15 08/11/19 History Colesevelam HCl 1,875 mg PO BID 08/10/19 08/10/19 History Ezetimibe [Zetia] 10 mg PO DAILY 08/10/19 08/11/19 History Insulin Degludec [Tresiba] 55 unit SQ DAILY 08/10/19 08/10/19 History Semaglutide [Ozempic] 1 mg SQ WEEKLY 08/10/19 08/10/19 History Metoprolol Succinate [Toprol Xl] 12.5 mg PO DAILY 08/11/19 08/11/19 History Active Medications Generic Name Dose Route Start Last Admin Trade Name Freq PRN Reason Stop Dose Admin Acetaminophen 650 mg 08/11/19 08:57 08/11/19 15:16 Tylenol - PO 650 mg Q6H PRN Administration PAIN LEVEL 4 - 6 Clonazepam 1 mg 08/11/19 14:00 08/12/19 06:45 Klonopin - PO 1 mg TID JAYCEE Administration Clopidogrel Bisulfate 75 mg 08/11/19 10:00 08/11/19 09:40 Plavix - PO 75 mg DAILY JAYCEE Administration Docusate Sodium 100 mg 08/11/19 10:00 08/11/19 22:48 Colace - PO 100 mg BID JAYCEE Administration Ezetimibe 10 mg 08/11/19 10:00 08/11/19 09:45 Zetia - PO 10 mg DAILY JAYCEE Administration Escitalopram Oxalate 10 mg 08/11/19 10:00 08/11/19 09:43 Lexapro - PO 10 mg DAILY JAYCEE Administration Gabapentin 600 mg 08/11/19 10:00 08/11/19 22:47 Neurontin - PO 600 mg BID JAYCEE Administration Insulin Aspart 1 vial 08/11/19 11:00 08/12/19 06:51 Novolog Vial Sliding Scale - SQ Not Given ACHS [facility] Protocol Lidocaine 1 patch 08/11/19 10:00 08/11/19 09:43 Lidoderm Patch - TP 1 patch DAILY [facility] Administration Lisinopril 2.5 mg 08/11/19 10:00 08/11/19 09:40 Prinivil PO 2.5 mg DAILY [facility] Administration Melatonin 10 mg 08/11/19 22:08 Melatonin PO HS PRN INSOMNIA Metoprolol Succinate 12.5 mg 08/12/19 10:00 Toprol Xl - PO DAILY [facility] Mirtazapine 30 mg 08/12/19 22:00 Remeron - PO HS [facility] Miscellaneous 1 each 08/11/19 22:00 08/11/19 23:05 Lidoderm Patch Removal MC Not Given DAILY@2200 [facility] Non-Formulary Medication 800 mg 08/11/19 08:24 Metaxalone [Skelaxin] PO TID PRN MUSCLE SPASMS Non-Formulary Medication 100 mg 08/12/19 10:00 Atomoxetine Hcl [Strattera] PO DAILY [facility] Non-Formulary Medication 1,875 mg 08/12/19 10:00 Colesevelam Hcl [Colesevelam Hcl] PO BID [facility] Non-Formulary Medication 55 unit 08/12/19 10:00 Insulin Degludec [Tresiba] SQ DAILY [facility] Non-Formulary Medication 1 mg 08/12/19 09:00 Semaglutide [Ozempic] SQ WEEKLY [facility] Ondansetron HCl 4 mg 08/12/19 00:50 Zofran Injection IVPUSH Q6H PRN NAUSEA Topiramate 100 mg 08/11/19 10:00 08/11/19 22:47 Topamax - PO 100 mg BID [facility] Administration Microbiology 08/10/19 18:33 Urine - Urine Clean Catch Urine Culture - Preliminary Constitutional: Yes: No Distress, Calm, Obese Eyes: Yes: Conjunctiva Clear HENT: Yes: Atraumatic Cardiovascular: Yes: Regular Rate and Rhythm Respiratory: Yes: Regular, CTA Bilaterally Gastrointestinal: Yes: Normal Bowel Sounds, Soft, Abdomen, Obese Musculoskeletal: Yes: Muscle Weakness Extremities: Yes: WNL Edema: No Neurological: Yes: Alert, Oriented Psychiatric: Yes: Alert, Oriented Labs: CBC, BMP 08/12/19 06:45 08/12/19 06:45 Discharge Summary Problems reviewed: Yes Reason For Visit: CHRONIC LOW BACK PAIN, FALL Current Active Problems Chronic lower back pain (Acute) Facial injury (Acute) Fall (Acute) Generalized weakness (Acute) Hospital Course: This is a 54 y/o woman with a PMHx of obesity, spinal degenerative changes and lumbar disc herniation, chronic lumbago with bilateral sciatica, poorly controlled IDDM c/b BLE neuropathy, incontinence, non-ambulatory, COPD. Who presents to the ED s/p Fall, unable to ambulate, pain. Patient reports waking up this morning feeling increasingly dizzy, attempting to get out of bed to her rollator, when she fell approximately 10 times prompting her to call for EMS. She reports not being able to get herself up from the floor. She is unaware of what she hit her head on. She is unaware of her last tetanus shot. She denies any urinary or bowel incontinence. She denies recent chest pain or shortness of breath. She denies recent fevers, chills, headache or dizziness. She denies recent nausea, vomiting, diarrhea or constipation. She denies recent dysuria, frequency, urgency or hematuria. Head CT scan shows no ICH. CXR unremarkable and no fracture noted. CT scan of Lumbar and C-spine show degenerative changes. Facial CT scan shows no acute fracture. Evaluated by orthopedics and recommend PT. Condition: Stable - Instructions Diet, Activity, Other Instructions: Follow up with PCP Dr Amaro Follow up with pain management Dr Hendricks for chronic lower back pain continue with medication as prescribed return to ER if severe pain, fall, respiratory distress, chest pain Referrals: Karthik Amaro MD [Primary Care Provider] - - Home Medications Comprehensive Discharge Medication List: Ambulatory Orders Clonazepam [Klonopin] 1 mg PO TID 12/31/14 Clopidogrel Bisulfate [Plavix -] 75 mg PO DAILY 12/31/14 Docusate Sodium [Colace -] 100 mg PO BID 12/31/14 Escitalopram Oxalate [Lexapro -] 10 mg PO DAILY 12/31/14 Gabapentin [Neurontin -] 600 mg PO BID 12/31/14 Metaxalone [Skelaxin] 800 mg PO TID PRN 12/31/14 Lisinopril [Prinivil -] 2.5 mg PO DAILY 07/06/15 Atomoxetine HCl [Strattera] 100 mg PO DAILY 11/13/15 Topiramate [Topamax -] 100 mg PO BID 11/13/15 Colesevelam HCl 1,875 mg PO BID 08/10/19 Ezetimibe [Zetia] 10 mg PO DAILY 08/10/19 Insulin Degludec [Tresiba] 55 unit SQ DAILY 08/10/19 Semaglutide [Ozempic] 1 mg SQ WEEKLY 08/10/19 Metoprolol Succinate [Toprol Xl] 12.5 mg PO DAILY 08/11/19 Lidocaine 5% Patch [Lidoderm -] 1 patch TP DAILY #30 patch 08/12/19
[2019-08-12] MEDS ORDERED: COLESEVELAM HCL 1875 MG PO SCH (10:00)
[2019-08-12] MEDS ORDERED: PT OWN MED DRAWER 7, Y5N ONE (11:18)
[2019-08-12] MEDS: DOCUSATE SODIUM 100 MG CAPSULE (FP) PO SCH ×2 (11:19→22:35)
[2019-08-12] MEDS: EZETIMIBE 10 MG TABLET (FP) PO SCH (11:19)
[2019-08-12] MEDS: ESCITALOPRAM OXALATE 10 MG TABLET PO SCH (11:20)
[2019-08-12] MEDS: GABAPENTIN 300 MG CAPSULE PO SCH ×2 (11:20→22:35)
[2019-08-12] MEDS: CLOPIDOGREL BISULFATE 75 MG TABLET (FP) PO SCH (11:20)
[2019-08-12] MEDS: TOPIRAMATE 100 MG TABLET PO SCH ×2 (11:20→22:34)
[2019-08-12] MEDS: metoPROLOL SUCCINATE 25 MG TAB.SR.24H (FP) PO SCH (11:20)
[2019-08-12] MEDS: LISINOPRIL 5 MG TABLET (FP) PO SCH (11:21)
[2019-08-12] MEDS: LIDOCAINE 5% TOPICAL PATCH TP SCH (11:22)
[2019-08-12] MEDS ORDERED: MIRTAZAPINE 15 MG TABLET (FP) ONE (21:04)
[2019-08-12] MEDS: INSULIN DEGLUDEC 55 UNIT SQ SCH (21:45)
[2019-08-12] MEDS: MELATONIN 5 MG TABLETS PO PRN (22:33)
[2019-08-12] MEDS: LIDOCAINE PATCH REMOVAL MC SCH (22:36)
[2019-08-12] MEDS: MIRTAZAPINE 30 MG TABLET (FP) PO SCH (22:36)
[2019-08-12] MEDS: ATOMOXETINE HCL 100 MG PO SCH (23:58)
[2019-08-13] MEDS: INSULIN SLIDING SCALE (NOVOLOG) 1 VIAL SQ SCH ×4 (07:00→22:18)
[2019-08-13] MEDS: clonazePAM 0.5 MG TABLET PO SCH ×3 (07:00→22:17)
--- NOTE | 2019-08-13 08:18 | PN ---
Progress Note, Physician Chief Complaint: Fall Chronic Lower Back Pain History of Present Illness: Previous notes and events reviewed awake and alert NAD denies dizziness denies chest pain or SOB patient is pending acceptance to [facility] - Current Medication List Current Medications: Active Medications Acetaminophen (Tylenol -) 650 mg PO Q6H PRN PRN Reason: PAIN LEVEL 4 - 6 Last Admin: 08/11/19 15:16 Dose: 650 mg Clonazepam (Klonopin -) 1 mg PO TID [facility] Last Admin: 08/13/19 07:00 Dose: 1 mg Clopidogrel Bisulfate (Plavix -) 75 mg PO DAILY [facility] Last Admin: 08/12/19 11:20 Dose: 75 mg Docusate Sodium (Colace -) 100 mg PO BID [facility] Last Admin: 08/12/19 22:35 Dose: 100 mg Ezetimibe (Zetia -) 10 mg PO DAILY [facility] Last Admin: 08/12/19 11:19 Dose: 10 mg Escitalopram Oxalate (Lexapro -) 10 mg PO DAILY [facility] Last Admin: 08/12/19 11:20 Dose: 10 mg Gabapentin (Neurontin -) 600 mg PO BID [facility] Last Admin: 08/12/19 22:35 Dose: 600 mg Insulin Aspart (Novolog Vial Sliding Scale -) [address] [facility]; Protocol Last Admin: 08/13/19 07:00 Dose: Not Given Lidocaine (Lidoderm Patch -) 1 patch TP DAILY [facility] Last Admin: 08/12/19 11:22 Dose: 1 patch Lisinopril (Prinivil) 2.5 mg PO DAILY [facility] Last Admin: 08/12/19 11:21 Dose: 2.5 mg Melatonin (Melatonin) 10 mg PO HS PRN PRN Reason: INSOMNIA Last Admin: 08/12/19 22:33 Dose: 10 mg Metoprolol Succinate (Toprol Xl -) 12.5 mg PO DAILY [facility] Last Admin: 08/12/19 11:20 Dose: 12.5 mg Mirtazapine (Remeron -) 30 mg PO HS [facility] Last Admin: 08/12/19 22:36 Dose: 30 mg Miscellaneous (Lidoderm Patch Removal) 1 each MC DAILY@2200 [facility] Last Admin: 08/12/19 22:36 Dose: 1 each Non-Formulary Medication (Metaxalone [Skelaxin]) 800 mg PO TID PRN PRN Reason: MUSCLE SPASMS Non-Formulary Medication (Atomoxetine Hcl [Strattera]) 100 mg PO DAILY [facility] Last Admin: 08/12/19 23:58 Dose: Not Given Non-Formulary Medication (Colesevelam Hcl [Colesevelam Hcl]) 1,875 mg PO BID [facility] Non-Formulary Medication (Insulin Degludec [Tresiba]) 55 unit SQ DAILY [facility] Last Admin: 08/12/19 21:45 Dose: Not Given Non-Formulary Medication (Semaglutide [Ozempic]) 1 mg SQ WEEKLY [facility] Ondansetron HCl (Zofran Injection) 4 mg IVPUSH Q6H PRN PRN Reason: NAUSEA Topiramate (Topamax -) 100 mg PO BID [facility] Last Admin: 08/12/19 22:34 Dose: 100 mg - Objective Vital Signs: Vital Signs Temperature 97.6 F 08/13/19 05:57 Pulse Rate 54 L 08/13/19 05:57 Respiratory Rate 20 08/13/19 05:57 Blood Pressure 104/41 L 08/13/19 05:57 O2 Sat by Pulse Oximetry (%) 100 08/12/19 09:00 Constitutional: Yes: No Distress, Calm, Obese Eyes: Yes: Conjunctiva Clear, Other (ecchymosis L orbital area) HENT: Yes: Atraumatic Cardiovascular: Yes: Regular Rate and Rhythm Respiratory: Yes: Regular, CTA Bilaterally Gastrointestinal: Yes: Normal Bowel Sounds, Soft Musculoskeletal: Yes: Muscle Weakness Extremities: Yes: WNL Edema: No Neurological: Yes: Alert, Oriented Psychiatric: Yes: Alert, Oriented Labs: CBC, BMP 08/12/19 06:45 08/12/19 06:45 INR, PTT INR 1.06 (0.83-1.09) 08/10/19 15:37 Microbiology 08/10/19 18:33 Urine - Urine Clean Catch Urine Culture - Preliminary Problem List - Problems (1) Chronic lower back pain Assessment/Plan: -Lidocaine patch -Fall precaution -PT -pain control -Lumbar CT scan result shows no acute findings Code(s): M54.5 - LOW BACK PAIN; G89.29 - OTHER CHRONIC PAIN Qualifiers: Back pain laterality: midline Sciatica presence: with sciatica Sciatica laterality: bilateral sciatica Qualified Code(s): M54.41 - Lumbago with sciatica, right side; M54.42 - Lumbago with sciatica, left side; G89.29 - Other chronic pain (2) Facial injury Assessment/Plan: -Facial CT scan results shows no acute fracture -Head CT scan results shows no acute bleed or fracture -pain control -neuro checks q4h to monitor for neuro deficit Code(s): S09.93XA - UNSPECIFIED INJURY OF FACE, INITIAL ENCOUNTER Qualifiers: Encounter type: initial encounter Qualified Code(s): S09.93XA - Unspecified injury of face, initial encounter (3) Fall Assessment/Plan: -Fall precautions -PT -neuro checks q4h -UC pending -Lumbar CT scan result shows no acute findings -Facial CT scan results shows no acute fracture -Head CT scan results shows no acute bleed or fracture -Cervical Spine CT scan shows multilevel moderate degenerative change, no acute fracture Code(s): W19.XXXA - UNSPECIFIED FALL, INITIAL ENCOUNTER Qualifiers: Encounter type: initial encounter Qualified Code(s): W19.XXXA - Unspecified fall, initial encounter (4) Anxiety disorder Assessment/Plan: -Klonopin TID -Lexapro Code(s): F41.9 - ANXIETY DISORDER, UNSPECIFIED (5) COPD (chronic obstructive pulmonary disease) Assessment/Plan: -O2 via NC -keep SpO2 >90% -bronchodilators prn Code(s): J44.9 - CHRONIC OBSTRUCTIVE PULMONARY DISEASE, UNSPECIFIED (6) IDDM Assessment/Plan: -BGM ACHS -ISS -Tresiba -HgA1c 5.7% -diabetic diet Assessment/Plan see problem list dvt ppx pending acceptance to [facility]
[2019-08-13] MEDS: metoPROLOL SUCCINATE 25 MG TAB.SR.24H (FP) PO SCH (09:54)
[2019-08-13] MEDS: GABAPENTIN 300 MG CAPSULE PO SCH ×2 (09:54→22:18)
[2019-08-13] MEDS: LISINOPRIL 5 MG TABLET (FP) PO SCH (09:55)
[2019-08-13] MEDS: DOCUSATE SODIUM 100 MG CAPSULE (FP) PO SCH ×2 (09:55→22:17)
[2019-08-13] MEDS: CLOPIDOGREL BISULFATE 75 MG TABLET (FP) PO SCH (09:55)
[2019-08-13] MEDS: TOPIRAMATE 100 MG TABLET PO SCH ×2 (09:55→22:18)
[2019-08-13] MEDS: LIDOCAINE 5% TOPICAL PATCH TP SCH (09:56)
[2019-08-13] MEDS: EZETIMIBE 10 MG TABLET (FP) PO SCH (09:57)
[2019-08-13] MEDS: ESCITALOPRAM OXALATE 10 MG TABLET PO SCH (09:58)
[2019-08-13] MEDS: INSULIN DEGLUDEC 55 UNIT SQ SCH ×3 (09:59→12:00)
[2019-08-13] MEDS: ATOMOXETINE HCL 100 MG PO SCH (10:00)
[2019-08-13] MEDS ORDERED: PT OWN MED DRAWER 7, Y5N ONE ×4 (10:22→18:05)
[2019-08-13] MEDS: DEXLANSOPRAZOLE PO SCH (15:51)
[2019-08-13] MEDS ORDERED: MIRTAZAPINE 15 MG TABLET (FP) ONE (21:11)
[2019-08-13] MEDS: LIDOCAINE PATCH REMOVAL MC SCH (22:17)
[2019-08-13] MEDS: MIRTAZAPINE 30 MG TABLET (FP) PO SCH (22:19)
[2019-08-13] MEDS: MELATONIN 5 MG TABLETS PO PRN (22:19)
[2019-08-14] MEDS: clonazePAM 0.5 MG TABLET PO SCH ×2 (06:19→13:56)
[2019-08-14] MEDS: INSULIN SLIDING SCALE (NOVOLOG) 1 VIAL SQ SCH ×4 (06:32→18:22)
--- NOTE | 2019-08-14 09:33 | PN ---
Progress Note, Physician Chief Complaint: Fall Chronic Lower Back Pain History of Present Illness: Previous notes and events reviewed awake and alert NAD patient is pending insurance authorization for SNF - Current Medication List Current Medications: Active Medications Acetaminophen (Tylenol -) 650 mg PO Q6H PRN PRN Reason: PAIN LEVEL 4 - 6 Last Admin: 08/11/19 15:16 Dose: 650 mg Clonazepam (Klonopin -) 1 mg PO TID [facility] Last Admin: 08/14/19 06:19 Dose: 1 mg Clopidogrel Bisulfate (Plavix -) 75 mg PO DAILY [facility] Last Admin: 08/13/19 09:55 Dose: 75 mg Docusate Sodium (Colace -) 100 mg PO BID [facility] Last Admin: 08/13/19 22:17 Dose: 100 mg Ezetimibe (Zetia -) 10 mg PO DAILY [facility] Last Admin: 08/13/19 09:57 Dose: 10 mg Escitalopram Oxalate (Lexapro -) 10 mg PO DAILY [facility] Last Admin: 08/13/19 09:58 Dose: 10 mg Gabapentin (Neurontin -) 600 mg PO BID [facility] Last Admin: 08/13/19 22:18 Dose: 600 mg Insulin Aspart (Novolog Vial Sliding Scale -) 1 vial SQ [facility]; Protocol Last Admin: 08/14/19 06:32 Dose: Not Given Lidocaine (Lidoderm Patch -) 1 patch TP DAILY [facility] Last Admin: 08/13/19 09:56 Dose: 1 patch Lisinopril (Prinivil) 2.5 mg PO DAILY [facility] Last Admin: 08/13/19 09:55 Dose: 2.5 mg Melatonin (Melatonin) 10 mg PO HS PRN PRN Reason: INSOMNIA Last Admin: 08/13/19 22:19 Dose: 10 mg Metoprolol Succinate (Toprol Xl -) 12.5 mg PO DAILY [facility] Last Admin: 08/13/19 09:54 Dose: 12.5 mg Mirtazapine (Remeron -) 30 mg PO HS [facility] Last Admin: 08/13/19 22:19 Dose: 30 mg Miscellaneous (Lidoderm Patch Removal) 1 each MC DAILY@2200 [facility] Last Admin: 08/13/19 22:17 Dose: Not Given Non-Formulary Medication (Metaxalone [Skelaxin]) 800 mg PO TID PRN PRN Reason: MUSCLE SPASMS Last Admin: 08/13/19 10:01 Dose: 800 mg Non-Formulary Medication (Atomoxetine Hcl [Strattera]) 100 mg PO DAILY [facility] Last Admin: 08/13/19 10:00 Dose: 100 mg Non-Formulary Medication (Colesevelam Hcl [Colesevelam Hcl]) 1,875 mg PO BID [facility] Non-Formulary Medication (Insulin Degludec [Tresiba]) 55 unit SQ DAILY [facility] Last Admin: 08/13/19 12:00 Dose: 50 unit Non-Formulary Medication (Semaglutide [Ozempic]) 1 mg SQ WEEKLY [facility] Ptnt's Own Med ( Dexlansoprazole [ Dexilant] 60 Mg) 60 mg PO DAILY [facility] Last Admin: 08/13/19 15:51 Dose: 60 mg Ondansetron HCl (Zofran Injection) 4 mg IVPUSH Q6H PRN PRN Reason: NAUSEA Topiramate (Topamax -) 100 mg PO BID [facility] Last Admin: 08/13/19 22:18 Dose: 100 mg - Objective Vital Signs: Vital Signs Temperature 97.9 F 08/14/19 02:10 Pulse Rate 60 08/14/19 02:10 Respiratory Rate 20 08/14/19 02:10 Blood Pressure 112/53 L 08/14/19 02:10 O2 Sat by Pulse Oximetry (%) 100 08/13/19 09:00 Labs: CBC, BMP 08/12/19 06:45 08/12/19 06:45 INR, PTT INR 1.06 (0.83-1.09) 08/10/19 15:37 Problem List - Problems (1) Chronic lower back pain Code(s): M54.5 - LOW BACK PAIN; G89.29 - OTHER CHRONIC PAIN Qualifiers: Back pain laterality: midline Sciatica presence: with sciatica Sciatica laterality: bilateral sciatica Qualified Code(s): M54.41 - Lumbago with sciatica, right side; M54.42 - Lumbago with sciatica, left side; G89.29 - Other chronic pain (2) Facial injury Code(s): S09.93XA - UNSPECIFIED INJURY OF FACE, INITIAL ENCOUNTER Qualifiers: Encounter type: initial encounter Qualified Code(s): S09.93XA - Unspecified injury of face, initial encounter (3) Fall Code(s): W19.XXXA - UNSPECIFIED FALL, INITIAL ENCOUNTER Qualifiers: Encounter type: initial encounter Qualified Code(s): W19.XXXA - Unspecified fall, initial encounter (4) Anxiety disorder Code(s): F41.9 - ANXIETY DISORDER, UNSPECIFIED (5) COPD (chronic obstructive pulmonary disease) Code(s): J44.9 - CHRONIC OBSTRUCTIVE PULMONARY DISEASE, UNSPECIFIED
[2019-08-14] MEDS: LISINOPRIL 5 MG TABLET (FP) PO SCH (10:13)
[2019-08-14] MEDS: GABAPENTIN 300 MG CAPSULE PO SCH (10:15)
[2019-08-14] MEDS: CLOPIDOGREL BISULFATE 75 MG TABLET (FP) PO SCH (10:15)
[2019-08-14] MEDS: DOCUSATE SODIUM 100 MG CAPSULE (FP) PO SCH (10:16)
[2019-08-14] MEDS: EZETIMIBE 10 MG TABLET (FP) PO SCH (10:16)
[2019-08-14] MEDS: TOPIRAMATE 100 MG TABLET PO SCH (10:16)
[2019-08-14] MEDS: ESCITALOPRAM OXALATE 10 MG TABLET PO SCH (10:16)
[2019-08-14] MEDS: metoPROLOL SUCCINATE 25 MG TAB.SR.24H (FP) PO SCH (10:16)
[2019-08-14] MEDS: ATOMOXETINE HCL 100 MG PO SCH (10:17)
[2019-08-14] MEDS: LIDOCAINE 5% TOPICAL PATCH TP SCH (10:19)
[2019-08-14] MEDS: DEXLANSOPRAZOLE PO SCH (10:20)
--- NOTE | 2019-08-14 10:35 | DS ---
Physical Examination Vital Signs: Vital Signs Temperature 97.9 F 08/14/19 02:10 Pulse Rate 60 08/14/19 02:10 Respiratory Rate 20 08/14/19 02:10 Blood Pressure 112/53 L 08/14/19 02:10 O2 Sat by Pulse Oximetry (%) 100 08/13/19 09:00 Findings/Remarks: Laboratory Last Values WBC 7.7 K/mm3 (4.0-10.0) 08/12/19 06:45 RBC 4.16 M/mm3 (3.60-5.2) 08/12/19 06:45 Hgb 11.3 GM/dL (10.7-15.3) 08/12/19 06:45 Hct 35.1 % (32.4-45.2) 08/12/19 06:45 MCV 84.4 fl (80-96) 08/12/19 06:45 MCH 27.1 pg (25.7-33.7) 08/12/19 06:45 MCHC 32.1 g/dl (32.0-36.0) 08/12/19 06:45 RDW 15.1 % (11.6-15.6) 08/12/19 06:45 Plt Count 183 K/MM3 (134-434) 08/12/19 06:45 MPV 10.4 fl (7.5-11.1) 08/12/19 06:45 Absolute Neuts (auto) 5.2 K/mm3 (1.5-8.0) 08/11/19 06:20 Neutrophils % 60.6 % (42.8-82.8) 08/11/19 06:20 Lymphocytes % 28.9 % (8-40) D 08/11/19 06:20 Monocytes % 9.3 % (3.8-10.2) 08/11/19 06:20 Eosinophils % 0.6 % (0-4.5) D 08/11/19 06:20 Basophils % 0.6 % (0-2.0) 08/11/19 06:20 Nucleated RBC % 0 % (0-0) 08/11/19 06:20 PT with INR 12.50 SEC (9.7-13.0) 08/10/19 15:37 INR 1.06 (0.83-1.09) 08/10/19 15:37 PTT (Actin FS) 31.9 SECONDS (25.2-36.5) 08/10/19 15:37 Sodium 139 mmol/L (136-145) 08/12/19 06:45 Potassium 3.9 mmol/L (3.5-5.1) 08/12/19 06:45 Chloride 108 mmol/L (98-107) H 08/12/19 06:45 Carbon Dioxide 25 mmol/L (21-32) 08/12/19 06:45 Anion Gap 7 MMOL/L (8-16) L 08/12/19 06:45 BUN 15.4 mg/dL (7-18) 08/12/19 06:45 Creatinine 1.0 mg/dL (0.55-1.3) 08/12/19 06:45 Est GFR (CKD-EPI)AfAm 72.93 08/12/19 06:45 Est GFR (CKD-EPI)NonAf 62.93 08/12/19 06:45 POC Glucometer 71 UNITS (80-120) 08/14/19 07:02 Random Glucose 121 mg/dL (74-106) H 08/12/19 06:45 Hemoglobin A1c % 5.7 % (4.2-6.3) 08/12/19 06:45 Calcium 10.0 mg/dL (8.5-10.1) 08/12/19 06:45 Phosphorus 2.7 mg/dL (2.5-4.9) 08/10/19 15:37 Magnesium 2.2 mg/dL (1.8-2.4) 08/10/19 15:37 Total Bilirubin 0.9 mg/dL (0.2-1) 08/12/19 06:45 AST 16 U/L (15-37) 08/12/19 06:45 ALT 17 U/L (13-61) 08/12/19 06:45 Alkaline Phosphatase 112 U/L (45-117) 08/12/19 06:45 Creatine Kinase 211 U/L (26-192) H 08/10/19 15:37 Creatine Kinase Index 1.3 % (0.0-5.0) 08/10/19 15:37 CK-MB (CK-2) 2.9 ng/mL (0.5-3.6) 08/10/19 15:37 Troponin I < 0.02 ng/ml (0.00-0.05) 08/10/19 15:37 B-Natriuretic Peptide 146.8 pg/ml (5-125) H 08/10/19 15:37 Total Protein 6.4 g/dl (6.4-8.2) 08/12/19 06:45 Albumin 3.0 g/dl (3.4-5.0) L 08/12/19 06:45 Urine Color Yellow 08/10/19 18:33 Urine Appearance Cloudy 08/10/19 18:33 Urine pH 7.5 (5.0-8.0) D 08/10/19 18:33 Ur Specific [place] 1.015 (1.010-1.035) 08/10/19 18:33 Urine Protein Trace (NEGATIVE) 08/10/19 18:33 Urine Glucose (UA) Negative (NEGATIVE) 08/10/19 18:33 Urine Ketones Trace (NEGATIVE) 08/10/19 18:33 Urine Blood Negative (NEGATIVE) 08/10/19 18: Urine Nitrite Negative (NEGATIVE) 08/10/19 18:33 Urine Bilirubin Negative (NEGATIVE) 08/10/19 18:33 Urine Urobilinogen 0.2 mg/dL (0.2-1.0) 08/10/19 18:33 Ur Leukocyte Esterase 1+ (NEGATIVE) H 08/10/19 18:33 Urine WBC (Auto) 13.8 /hpf (0-5) 08/10/19 18:33 Urine RBC (Auto) 26.5 /hpf (0-4) 08/10/19 18:33 Urine Casts (Auto) 44.08 /lpf (0-8) 08/10/19 18:33 U Pathogenic Cast Auto none /lpf (NEGATIVE) 08/10/19 18:33 U Epithel Cells (Auto) 7.2 /HPF (0-5/HPF) 08/10/19 18:33 U Sm Round Cell (Auto) none 08/10/19 18:33 Urine Bacteria (Auto) 74908.9 /hpf (NEGATIVE) 08/10/19 18:33 Home Medication List Medication Instructions Recorded Confirmed Type Clonazepam [Klonopin] 1 mg PO TID 12/31/14 08/10/19 History Clopidogrel Bisulfate [Plavix -] 75 mg PO DAILY 12/31/14 08/11/19 History Docusate Sodium [Colace -] 100 mg PO BID 12/31/14 08/10/19 History Escitalopram Oxalate [Lexapro -] 10 mg PO DAILY 12/31/14 08/11/19 History Gabapentin [Neurontin -] 600 mg PO BID 12/31/14 08/11/19 History Metaxalone [Skelaxin] 800 mg PO TID PRN 12/31/14 08/10/19 History Lisinopril [Prinivil -] 2.5 mg PO DAILY 07/06/15 08/11/19 History Atomoxetine HCl [Strattera] 100 mg PO DAILY 11/13/15 08/10/19 History Topiramate [Topamax -] 100 mg PO BID 11/13/15 08/11/19 History Colesevelam HCl 1,875 mg PO BID 08/10/19 08/10/19 History Ezetimibe [Zetia] 10 mg PO DAILY 08/10/19 08/11/19 History Insulin Degludec [Tresiba] 55 unit SQ DAILY 08/10/19 08/10/19 History Semaglutide [Ozempic] 1 mg SQ WEEKLY 08/10/19 08/10/19 History Metoprolol Succinate [Toprol Xl] 12.5 mg PO DAILY 08/11/19 08/11/19 History Dexlansoprazole [Dexilant] 60 mg PO DAILY 08/12/19 08/12/19 History Active Medications Generic Name Dose Route Start Last Admin Trade Name Freq PRN Reason Stop Dose Admin Acetaminophen 650 mg 08/11/19 08:57 08/11/19 15:16 Tylenol - PO 650 mg Q6H PRN Administration PAIN LEVEL 4 - 6 Clonazepam 1 mg 08/11/19 14:00 08/14/19 06:19 Klonopin - PO 1 mg TID [facility] Administration Clopidogrel Bisulfate 75 mg 08/11/19 10:00 08/14/19 10:15 Plavix - PO 75 mg DAILY [facility] Administration Docusate Sodium 100 mg 08/11/19 10:00 08/14/19 10:16 Colace - PO 100 mg BID [facility] Administration Ezetimibe 10 mg 08/11/19 10:00 08/14/19 10:16 Zetia - PO 10 mg DAILY [facility] Administration Escitalopram Oxalate 10 mg 08/11/19 10:00 08/14/19 10:16 Lexapro - PO 10 mg DAILY [facility] Administration Gabapentin 600 mg 08/11/19 10:00 08/14/19 10:15 Neurontin - PO 600 mg BID [facility] Administration Insulin Aspart 1 vial 08/11/19 11:00 08/14/19 06:32 Novolog Vial Sliding Scale - SQ Not Given ACHS [facility] Protocol Lidocaine 1 patch 08/11/19 10:00 08/14/19 10:19 Lidoderm Patch - TP 1 patch DAILY [facility] Administration Lisinopril 2.5 mg 08/11/19 10:00 08/14/19 10:13 Prinivil PO 2.5 mg DAILY [facility] Administration Melatonin 10 mg 08/11/19 22:08 08/13/19 22:19 Melatonin PO 10 mg HS PRN Administration INSOMNIA Metoprolol Succinate 12.5 mg 08/12/19 10:00 08/14/19 10:16 Toprol Xl - PO 12.5 mg DAILY [facility] Administration Mirtazapine 30 mg 08/12/19 22:00 08/13/19 22:19 Remeron - PO 30 mg HS [facility] Administration Miscellaneous 1 each 08/11/19 22:00 08/13/19 22:17 Lidoderm Patch Removal MC Not Given DAILY@2200 [facility] Non-Formulary Medication 800 mg 08/11/19 08:24 08/13/19 10:01 Metaxalone [Skelaxin] PO 800 mg TID PRN Administration MUSCLE SPASMS Non-Formulary Medication 100 mg 08/12/19 10:00 08/14/19 10:17 Atomoxetine Hcl [Strattera] PO 100 mg DAILY [facility] Administration Non-Formulary Medication 1,875 mg 08/12/19 10:00 Colesevelam Hcl [Colesevelam Hcl] PO BID [facility] Non-Formulary Medication 55 unit 08/12/19 10:00 08/13/19 12:00 Insulin Degludec [Tresiba] SQ 50 unit DAILY [facility] Administration Non-Formulary Medication 1 mg 08/12/19 09:00 Semaglutide [Ozempic] SQ WEEKLY [facility] Ptnt's Own Med ( 60 mg 08/13/19 15:00 08/14/19 10:20 Dexlansoprazole [ PO 60 mg Dexilant] 60 Mg) DAILY [facility] Administration Ondansetron HCl 4 mg 08/12/19 00:50 Zofran Injection IVPUSH Q6H PRN NAUSEA Topiramate 100 mg 08/11/19 10:00 08/14/19 10:16 Topamax - PO 100 mg BID [facility] Administration Microbiology 08/10/19 18:33 Urine - Urine Clean Catch Urine Culture - Final Streptococcus Viridans Constitutional: Yes: No Distress, Calm, Obese Eyes: Yes: Conjunctiva Clear HENT: Yes: Atraumatic Cardiovascular: Yes: Regular Rate and Rhythm Respiratory: Yes: Regular, CTA Bilaterally Gastrointestinal: Yes: Normal Bowel Sounds, Soft Musculoskeletal: Yes: Muscle Weakness Extremities: Yes: WNL Edema: No Neurological: Yes: Alert, Oriented Psychiatric: Yes: Alert, Oriented Labs: CBC, BMP 08/12/19 06:45 08/12/19 06:45 Discharge Summary Problems reviewed: Yes Reason For Visit: CHRONIC LOW BACK PAIN, FALL Current Active Problems Chronic lower back pain (Acute) Facial injury (Acute) Fall (Acute) Generalized weakness (Acute) Hospital Course: This is a 54 y/o woman with a PMHx of obesity, spinal degenerative changes and lumbar disc herniation, chronic lumbago with bilateral sciatica, poorly controlled IDDM c/b BLE neuropathy, incontinence, non-ambulatory, COPD. Who presents to the ED s/p Fall, unable to ambulate, pain. Patient reports waking up this morning feeling increasingly dizzy, attempting to get out of bed to her rollator, when she fell approximately 10 times prompting her to call for EMS. She reports not being able to get herself up from the floor. She is unaware of what she hit her head on. She is unaware of her last tetanus shot. She denies any urinary or bowel incontinence. She denies recent chest pain or shortness of breath. She denies recent fevers, chills, headache or dizziness. She denies recent nausea, vomiting, diarrhea or constipation. She denies recent dysuria, frequency, urgency or hematuria. Head CT scan shows no ICH. CXR unremarkable and no fracture noted. CT scan of Lumbar and C-spine show degenerative changes. Facial CT scan shows no acute fracture. Evaluated by orthopedics and recommend PT. Patient UC positive for streptococcous viridans. She will be discharged home on Augmentin 875mg BID x 5 days. She will be discharged home with visiting nurse services and home PT. Condition: Stable - Instructions Diet, Activity, Other Instructions: Follow up with PCP Dr Amaro Follow up with pain management Dr Hendricks for chronic lower back pain continue with medication as prescribed return to ER if severe pain, fall, respiratory distress, chest pain Referrals: Karthik Amaro MD [Primary Care Provider] - Disposition: VNS/HOME HEALTH CARE - Home Medications Comprehensive Discharge Medication List: Ambulatory Orders Clonazepam [Klonopin] 1 mg PO TID 12/31/14 Clopidogrel Bisulfate [Plavix -] 75 mg PO DAILY 12/31/14 Docusate Sodium [Colace -] 100 mg PO BID 12/31/14 Escitalopram Oxalate [Lexapro -] 10 mg PO DAILY 12/31/14 Gabapentin [Neurontin -] 600 mg PO BID 12/31/14 Metaxalone [Skelaxin] 800 mg PO TID PRN 12/31/14 Lisinopril [Prinivil -] 2.5 mg PO DAILY 07/06/15 Atomoxetine HCl [Strattera] 100 mg PO DAILY 11/13/15 Topiramate [Topamax -] 100 mg PO BID 11/13/15 Colesevelam HCl 1,875 mg PO BID 08/10/19 Ezetimibe [Zetia] 10 mg PO DAILY 08/10/19 Insulin Degludec [Tresiba] 55 unit SQ DAILY 08/10/19 Semaglutide [Ozempic] 1 mg SQ WEEKLY 08/10/19 Metoprolol Succinate [Toprol Xl] 12.5 mg PO DAILY 08/11/19 Dexlansoprazole [Dexilant] 60 mg PO DAILY 08/12/19 Lidocaine 5% Patch [Lidoderm -] 1 patch TP DAILY #30 patch 08/12/19
[2019-08-14 11:39] LABS: HEMATOCRIT 36.6 % (32.4-45.2); HEMOGLOBIN 11.8 GM/dL (10.7-15.3); MCH 27.1 pg (25.7-33.7); MCHC 32.2 g/dl (32.0-36.0); MEAN PLT VOLUME 10.9 fl (7.5-11.1); PLATELET COUNT 233 K/MM3 (134-434); RBC 4.36 M/mm3 (3.60-5.2); RDW 15.3 % (11.6-15.6); WHITE BLOOD COUNT 9.2 K/mm3 (4.0-10.0)
[2019-08-14 12:19] LABS: ALBUMIN 3.4 g/dl (3.4-5.0); BILIRUBIN,TOTAL 0.3 mg/dL (0.2-1); BLOOD UREA NITROGEN 15.2 mg/dL (7-18); CALCIUM 9.6 mg/dL (8.5-10.1); CREATININE 1.2 mg/dL (0.55-1.3); POTASSIUM 4.2 mmol/L (3.5-5.1); TOT PROT 6.9 g/dl (6.4-8.2)
[2019-08-14] MEDS: INSULIN DEGLUDEC 55 UNIT SQ SCH (13:27)
[2019-08-14 17:11] VITALS: BP 116/67; PULSE 95; TEMP 97.9
--- NOTE | 2019-08-14 17:41 | CON.PSY ---
Psychiatry Consult Chief Complaint: i AM NOT HALLUCINATING AND i NEVER DID. i HAVE PANIC DIOSRDER AND adfhd. I have been stable for a long time. I go to [facility]. - Previous Psychiatric Treatment Outpatient: Less than 6 mos ago Inpatient: One prior admission - Previous Substance Abuse Treatment Outpatient: None Inpatient: None - Reason for Previous Treatment Reason for Previous Treatment: Anxiety or Panic Disorder, Attention Deficit - Current Medications Current Medications: Active Medications Acetaminophen (Tylenol -) 650 mg PO Q6H PRN PRN Reason: PAIN LEVEL 4 - 6 Last Admin: 08/11/19 15:16 Dose: 650 mg Clonazepam (Klonopin -) 1 mg PO TID [facility] Last Admin: 08/14/19 13:56 Dose: 1 mg Clopidogrel Bisulfate (Plavix -) 75 mg PO DAILY [facility] Last Admin: 08/14/19 10:15 Dose: 75 mg Docusate Sodium (Colace -) 100 mg PO BID [facility] Last Admin: 08/14/19 10:16 Dose: 100 mg Ezetimibe (Zetia -) 10 mg PO DAILY [facility] Last Admin: 08/14/19 10:16 Dose: 10 mg Escitalopram Oxalate (Lexapro -) 10 mg PO DAILY [facility] Last Admin: 08/14/19 10:16 Dose: 10 mg Gabapentin (Neurontin -) 600 mg PO BID [facility] Last Admin: 08/14/19 10:15 Dose: 600 mg Insulin Aspart (Novolog Vial Sliding Scale -) 1 vial SQ ACHS [facility]; Protocol Last Admin: 08/14/19 13:28 Dose: Not Given Lidocaine (Lidoderm Patch -) 1 patch TP DAILY [facility] Last Admin: 08/14/19 10:19 Dose: 1 patch Lisinopril (Prinivil) 2.5 mg PO DAILY [facility] Last Admin: 08/14/19 10:13 Dose: 2.5 mg Melatonin (Melatonin) 10 mg PO HS PRN PRN Reason: INSOMNIA Last Admin: 08/13/19 22:19 Dose: 10 mg Metoprolol Succinate (Toprol Xl -) 12.5 mg PO DAILY [facility] Last Admin: 08/14/19 10:16 Dose: 12.5 mg Mirtazapine (Remeron -) 30 mg PO HS [facility] Last Admin: 08/13/19 22:19 Dose: 30 mg Miscellaneous (Lidoderm Patch Removal) 1 each MC DAILY@2200 [facility] Last Admin: 08/13/19 22:17 Dose: Not Given Non-Formulary Medication (Metaxalone [Skelaxin]) 800 mg PO TID PRN PRN Reason: MUSCLE SPASMS Last Admin: 08/13/19 10:01 Dose: 800 mg Non-Formulary Medication (Atomoxetine Hcl [Strattera]) 100 mg PO DAILY [facility] Last Admin: 08/14/19 10:17 Dose: 100 mg Non-Formulary Medication (Colesevelam Hcl [Colesevelam Hcl]) 1,875 mg PO BID [facility] Non-Formulary Medication (Insulin Degludec [Tresiba]) 55 unit SQ DAILY [facility] Last Admin: 08/14/19 13:27 Dose: Not Given Non-Formulary Medication (Semaglutide [Ozempic]) 1 mg SQ WEEKLY [facility] Ptnt's Own Med ( Dexlansoprazole [ Dexilant] 60 Mg) 60 mg PO DAILY [facility] Last Admin: 08/14/19 10:20 Dose: 60 mg Ondansetron HCl (Zofran Injection) 4 mg IVPUSH Q6H PRN PRN Reason: NAUSEA Topiramate (Topamax -) 100 mg PO BID [facility] Last Admin: 08/14/19 10:16 Dose: 100 mg - Allergies Allergies: Allergies Allergy/AdvReac Type Severity Reaction Status Date / Time Sulfa (Sulfonamide Allergy Mild Difficulty Verified 08/10/19 15:15 Antibiotics) Breathing [Sulfa(Sulfonamide Antibiotics)] nitrofurantoin Allergy Difficulty Verified 08/10/19 15:15 macrocrystalline Breathing [From Macrodantin] pentazocine lactate Allergy Verified 08/10/19 15:15 [From Talwin] aripiprazole [From Abilify] AdvReac Swelling Verified 08/10/19 15:15 aspirin AdvReac gastric Verified 08/10/19 15:15 ulcer bupropion HCl AdvReac cognitive Verified 08/10/19 15:15 [From Wellbutrin] function ketorolac tromethamine AdvReac Difficulty Verified 08/10/19 15:15 [From Toradol] Breathing NSAIDS (Non-Steroidal AdvReac gastric Verified 08/10/19 15:15 Anti-Inflamma ulcers statin drugs AdvReac muscle pain Uncoded 08/10/19 15:15 - Current Living Status Usual Living Arrangement: Alone - Current Mental Status Evaluation Appearance: Well Groomed Attitude: Cooperative - Affect Affect: Full Range Appropriateness: Appropriate to Content - Mood Mood: Euthymic - Speech/Language Expressive: Coherent - Psychomotor Activity Psychomotor Activity: Normal - Thought Process Thought Process: Intact - Thought Content Hallucinations: Absent Delusions: Absent - Self Perception Self Perception: No Impairment - Cognition Attention: Alert Orientation: Time Memory, Immediate Recall: Intact Memory, Short Term: 3/3 Memory, Remote with Promptin/3 - Concentration Serial Sevens Intact: No Simple Calculations Intact: Yes - Abstraction Proverb Interpretation: Intact Judgement: Intact - Insight Insight: Intact - Impulse Control Impulse Control: Good Control - Suicidal Ideation Suicidal Ideation: No - Homicidal Ideation Homicidal Ideation: No Assessment/Plan 1) Patient is Psychiatrically cleared for DIscharge Home on her OWN.
== END 2019-08-14 20:00 | disposition home health service (06) | DRG 48 ==
LOC: JER 14:03 → JERBED 20:07 → J8W 22:40
PROVIDERS: ADMIT Internal Medicine; ATTEND Family Medicine
DX: E11.40 Type 2 diabetes mellitus with diabetic neuropathy, unspecified (principal); J44.9 Chronic obstructive pulmonary disease, unspecified; E11.649 Type 2 diabetes mellitus with hypoglycemia without coma; E66.9 Obesity, unspecified; Z79.4 Long term (current) use of insulin; R29.6 Repeated falls; F41.9 Anxiety disorder, unspecified; M79.7 Fibromyalgia; F31.9 Bipolar disorder, unspecified; F17.210 Nicotine dependence, cigarettes, uncomplicated; M54.42 Lumbago with sciatica, left side; M54.41 Lumbago with sciatica, right side; S09.93XA Unspecified injury of face, initial encounter; W19.XXXA Unspecified fall, initial encounter; Y93.9 Activity, unspecified; Y92.009 Unspecified place in unspecified non-institutional (private) residence as the place of occurrence of the external cause; Y99.8 Other external cause status; Z68.39 Body mass index [BMI] 39.0-39.9, adult; M51.26 Other intervertebral disc displacement, lumbar region
CPT/HCPCS: 36415; 70450-TC; 70486-TC; 71045-TC-FY; 72125-TC; 72131-TC; 72170-TC-FY; 80048; 80053; 81003; 82550; 82553; 82962; 83036; 83735; 83880; 84100; 84484; 85025; 85027; 85610; 85730; 87077; 87086; 90715; 93005; 93010; 97116-GP; 97161-GP; 99285-25; J7030

== ENCOUNTER 2021-03-15 19:07 | Emergency (ER) | payer OTHER ==
[2021-03-15 20:06] VITALS: BP 140/76; PULSE 82; TEMP 98.1; BMI 45.2
[2021-03-15] MEDS ORDERED: BACLOFEN 10 MG TABLET (FP) PO ONE (21:09)
[2021-03-15] MEDS ORDERED: ACETAMINOPHEN 325 MG TABLET (FP) PO ONE (21:10)
[2021-03-15] MEDS ORDERED: BACLOFEN 10 MG TABLET (FP) ONE (21:19)
[2021-03-15] MEDS ORDERED: ACETAMINOPHEN 325 MG TABLET (FP) ONE (21:19)
[2021-03-15 21:28] LABS: BASO % 1.3 % (0-2.0); EOS % 1.4 % (0-4.5); HEMATOCRIT 32.7 % (32.4-45.2); HEMOGLOBIN 10.6 GM/dL (10.7-15.3); LYMPH % 27.7 % (8-40); MCH 28.1 pg (25.7-33.7); MCHC 32.4 g/dl (32.0-36.0); MEAN CELL VOLUME 86.7 fl (80-96); MEAN PLT VOLUME 9.8 fl (7.5-11.1); MONO % 8.5 % (3.8-10.2); NEUT % 61.1 % (42.8-82.8); PLATELET COUNT 209 10^3/uL (134-434); RBC 3.77 M/mm3 (3.60-5.2); RDW 14.8 % (11.6-15.6); WHITE BLOOD COUNT 9.3 K/mm3 (4.0-10.0)
[2021-03-15 21:49] LABS: CHLORIDE 111 mmol/L (98-107); SODIUM 141 mmol/L (136-145)
[2021-03-15 21:52] LABS: CALCIUM 9.4 mg/dL (8.5-10.1)
[2021-03-15 21:53] LABS: ALBUMIN 3.2 g/dl (3.4-5.0); ANION GAP 8 MMOL/L (8-16); BLOOD UREA NITROGEN 18.1 mg/dL (7-18); CO2 22 mmol/L (21-32); GLUCOSE,RANDOM 66 mg/dL (74-106)
[2021-03-15 21:56] LABS: CREATININE 0.8 mg/dL (0.55-1.3); SGOT/AST 23 U/L (15-37)
[2021-03-15 21:58] LABS: BILIRUBIN,TOTAL 0.2 mg/dL (0.2-1); SGPT/ALT 31 U/L (13-61); TOT PROT 7.2 g/dl (6.4-8.2)
[2021-03-15 21:59] LABS: ALK PHOS 124 U/L (45-117)
[2021-03-15 22:44] LABS: N-TERMINAL BNP 195.2 pg/ml (5-125)
== END 2021-03-15 23:20 | disposition home or self-care (01) ==
LOC: JER 19:07
DX: M62.838 Other muscle spasm (principal)
CPT/HCPCS: 36415; 70450-TC; 71045-TC-FY; 80053; 82550; 82553; 82962; 83880; 84484; 85025; 99284-25; J0475

== ENCOUNTER 2022-10-12 15:14 | Inpatient (IN) | payer OTHER ==
[2022-10-12 15:25] VITALS: BMI 34.3
[2022-10-12] MEDS ORDERED: DEXTROSE 50%-WATER 25 GM/50 ML DISP.SYRIN ONE (15:57)
[2022-10-12] MEDS ORDERED: DEXTROSE 50%-WATER - 25 GM/50 ML VIAL IVPUSH ONE ×3 (15:58→16:10)
[2022-10-12 16:52] LABS: BASO % 0.4 % (0-2.0); EOS % 0.4 % (0-4.5); HEMATOCRIT 29.6 % (32.4-45.2); HEMOGLOBIN 9.6 GM/dL (10.7-15.3); LYMPH % 19.1 % (8-40); MCH 28.9 pg (25.7-33.7); MCHC 32.4 g/dl (32.0-36.0); MEAN CELL VOLUME 89.3 fl (80-96); MEAN PLT VOLUME 9.9 fl (7.5-11.1); MONO % 6.9 % (3.8-10.2); NEUT % 73.2 % (42.8-82.8); PLATELET COUNT 170 10^3/uL (134-434); RBC 3.32 M/mm3 (3.60-5.2); RDW 14.3 % (11.6-15.6); WHITE BLOOD COUNT 9.2 K/mm3 (4.0-10.0)
[2022-10-12 16:54] LABS: EPI CELLS >36 /uL (0-25.1); HYALINE CASTS 1 /uL (0-3.1); URINE APPEARANCE TURBID; URINE BACTERIA >9,000 /uL (0-1359); URINE BILIRUBIN NEGATIVE (NEGATIVE); URINE COLOR YELLOW; URINE GLUCOSE (UA) 1+ (NEGATIVE); URINE KETONE NEGATIVE (NEGATIVE); URINE LEUK ESTERASE 2+ (NEGATIVE); URINE NITRITE NEGATIVE (NEGATIVE); URINE PROTEIN NEGATIVE (NEGATIVE); URINE UROBILINOGEN 0.2 mg/dL (0.2-1.0); URINE WBC 42 /uL (0-25.8)
[2022-10-12 16:58] LABS: VENOUS BASE EXCESS -3.5 mmol/L (-2-2); VENOUS PCO2 50.7 mmHg (38-52); VENOUS PH 7.282 (7.310-7.410)
[2022-10-12] MEDS ORDERED: CEFTRIAXONE 1 GM in DEXTROSE 5%-WATER - 100 ML IVPB ONE (17:00)
[2022-10-12] MEDS: DEXTROSE 5%-LACTATED RINGERS 1,000 ML IV SCH (17:08)
[2022-10-12 17:14] LABS: ACTIVATED PTT 25.3 SECONDS (25.2-36.5); INR 1.05 (0.83-1.09); PROTHROMBIN TIME (PATIENT) 12.1 SEC (9.7-13.0)
[2022-10-12 17:20] LABS: CHLORIDE 108 mmol/L (98-107); SODIUM 136 mmol/L (136-145)
[2022-10-12 17:23] LABS: ANION GAP 4 MMOL/L (8-16); CALCIUM 9.4 mg/dL (8.5-10.1); CO2 24 mmol/L (21-32)
[2022-10-12 17:24] LABS: ALBUMIN 2.8 g/dl (3.4-5.0); GLUCOSE,RANDOM 219 mg/dL (74-106); URINE RBC 0 /uL (0-23.9)
[2022-10-12] MEDS ORDERED: CEFTRIAXONE 1 GM/50 ML BAG ONE (17:24)
[2022-10-12 17:27] LABS: CREATININE 0.8 mg/dL (0.55-1.3); SGOT/AST 18 U/L (15-37)
[2022-10-12 17:28] LABS: BILIRUBIN,TOTAL < 0.1 mg/dL (0.2-1); TOT PROT 5.5 g/dl (6.4-8.2)
[2022-10-12 17:29] LABS: ALK PHOS 87 U/L (45-117)
[2022-10-12 17:36] LABS: BLOOD UREA NITROGEN 15.9 mg/dL (7-18)
[2022-10-12 17:41] LABS: SGPT/ALT 19 U/L (13-61)
[2022-10-12] MEDS ORDERED: traMADol HCL 50 MG TABLET PO ONE (20:50)
[2022-10-12] MEDS ORDERED: traMADol HCL 50 MG TABLET ONE (20:54)
[2022-10-12] MEDS: ENOXAPARIN NA (PORCINE) 80 MG/0.8 ML DISP.SYRIN SQ SCH (21:13)
[2022-10-13 07:15] LABS: BASO % 0.8 % (0-2.0); EOS % 0.7 % (0-4.5); HEMATOCRIT 32.1 % (32.4-45.2); HEMOGLOBIN 10.9 GM/dL (10.7-15.3); LYMPH % 29.8 % (8-40); MCH 29.6 pg (25.7-33.7); MCHC 33.9 g/dl (32.0-36.0); MEAN CELL VOLUME 87.5 fl (80-96); MEAN PLT VOLUME 9.3 fl (7.5-11.1); MONO % 8.2 % (3.8-10.2); NEUT % 60.5 % (42.8-82.8); PLATELET COUNT 183 10^3/uL (134-434); RBC 3.67 M/mm3 (3.60-5.2); RDW 14.3 % (11.6-15.6); WHITE BLOOD COUNT 9.3 K/mm3 (4.0-10.0)
[2022-10-13 07:41] LABS: ALBUMIN 2.9 g/dl (3.4-5.0); CALCIUM 9.5 mg/dL (8.5-10.1); MAGNESIUM 1.9 mg/dL (1.8-2.4)
[2022-10-13 07:43] LABS: CREATININE 0.9 mg/dL (0.55-1.3)
[2022-10-13 07:45] LABS: BILIRUBIN,TOTAL 0.2 mg/dL (0.2-1); TOT PROT 5.8 g/dl (6.4-8.2)
[2022-10-13] MEDS ORDERED: LACTULOSE 20 GM/30 ML UDC (FOR ORAL USE ONLY) PO SCH (10:00)
[2022-10-13] MEDS: PANTOPRAZOLE 40 MG TABLET PO SCH ×2 (11:05→21:05)
[2022-10-13] MEDS: APIXABAN 5 MG TABLET PO SCH ×2 (11:06→21:05)
[2022-10-13] MEDS: EZETIMIBE 10 MG TABLET (FP) PO SCH (11:07)
[2022-10-13] MEDS: DOCUSATE SODIUM 100 MG CAPSULE (FP) PO SCH ×2 (11:08→21:05)
[2022-10-13] MEDS: ESCITALOPRAM OXALATE 10 MG TABLET PO SCH (11:08)
[2022-10-13] MEDS: CLOPIDOGREL BISULFATE 75 MG TABLET (FP) PO SCH (11:08)
[2022-10-13] MEDS: LISINOPRIL 5 MG TABLET PO SCH (11:08)
[2022-10-13] MEDS: metoPROLOL SUCCINATE 25 MG TAB.SR.24H (FP) PO SCH (11:08)
[2022-10-13] MEDS: GABAPENTIN 300 MG CAPSULE PO SCH ×2 (11:09→21:05)
[2022-10-13] MEDS: CEFTRIAXONE 1 GM in DEXTROSE 5%-WATER - 50 ML IVPB SCH (11:09)
[2022-10-13] MEDS: INSULIN (LEVEMIR) 100 UNITS/ML UNITS SQ SCH ×2 (11:10→21:04)
[2022-10-13] MEDS: clonazePAM 0.5 MG TABLET PO SCH ×2 (13:15→21:05)
[2022-10-13] MEDS ORDERED: BACLOFEN 10 MG TABLET (FP) PO SCH (14:00)
[2022-10-13] MEDS: ENOXAPARIN NA (PORCINE) 80 MG/0.8 ML DISP.SYRIN SQ SCH (15:35)
[2022-10-13] MEDS: DEXTROSE 5%-LACTATED RINGERS 1,000 ML IV SCH (15:35)
[2022-10-13] MEDS: BACLOFEN 10 MG TABLET (FP) PO SCH (21:05)
[2022-10-13] MEDS ORDERED: PATIENT'S OWN MEDICATION (NON-FORMULARY) (Baclofen [Baclofen] 20 MG Tablet) PO SCH (22:00)
[2022-10-13] MEDS ORDERED: LACTULOSE 20 GM/30 ML UDC (FOR ORAL USE ONLY) PO ONE (22:10)
[2022-10-14] MEDS: clonazePAM 0.5 MG TABLET PO SCH (06:05)
[2022-10-14] MEDS: INSULIN (LEVEMIR) 100 UNITS/ML UNITS SQ SCH (06:05)
[2022-10-14 08:11] LABS: ALBUMIN 2.8 g/dl (3.4-5.0); BLOOD UREA NITROGEN 17.8 mg/dL (7-18); CALCIUM 9.5 mg/dL (8.5-10.1)
[2022-10-14 08:14] LABS: CREATININE 0.8 mg/dL (0.55-1.3)
[2022-10-14 08:15] LABS: BILIRUBIN,TOTAL 0.3 mg/dL (0.2-1); TOT PROT 5.7 g/dl (6.4-8.2)
[2022-10-14 08:56] VITALS: RESP 18
[2022-10-14 09:00] VITALS: BP 119/63; PULSE 77; TEMP 97.7
[2022-10-14] MEDS: CEFTRIAXONE 1 GM in DEXTROSE 5%-WATER - 50 ML IVPB SCH (09:33)
[2022-10-14] MEDS: metoPROLOL SUCCINATE 25 MG TAB.SR.24H (FP) PO SCH (09:34)
[2022-10-14] MEDS: LISINOPRIL 5 MG TABLET PO SCH (09:34)
[2022-10-14] MEDS: CLOPIDOGREL BISULFATE 75 MG TABLET (FP) PO SCH (09:34)
[2022-10-14] MEDS: PANTOPRAZOLE 40 MG TABLET PO SCH (09:34)
[2022-10-14] MEDS: EZETIMIBE 10 MG TABLET (FP) PO SCH (09:34)
[2022-10-14] MEDS: ESCITALOPRAM OXALATE 10 MG TABLET PO SCH (09:35)
[2022-10-14] MEDS: DOCUSATE SODIUM 100 MG CAPSULE (FP) PO SCH (09:35)
[2022-10-14] MEDS: BACLOFEN 10 MG TABLET (FP) PO SCH (09:35)
[2022-10-14] MEDS: APIXABAN 5 MG TABLET PO SCH (09:36)
[2022-10-14] MEDS: GABAPENTIN 300 MG CAPSULE PO SCH (09:36)
== END 2022-10-14 10:45 | disposition home or self-care (01) | DRG 420 ==
LOC: JER 15:14 → INTOOBSV 18:06 → OBSVTOIN 18:06 → JERBED 18:06 → J4W 22:42 → OBSVTOIN 10-13 10:16
PROVIDERS: ADMIT Internal Medicine; ATTEND Family Medicine
DX: E11.649 Type 2 diabetes mellitus with hypoglycemia without coma (principal); G93.41 Metabolic encephalopathy; E78.5 Hyperlipidemia, unspecified; I25.10 Atherosclerotic heart disease of native coronary artery without angina pectoris; J44.9 Chronic obstructive pulmonary disease, unspecified; K21.9 Gastro-esophageal reflux disease without esophagitis; M79.7 Fibromyalgia; E11.42 Type 2 diabetes mellitus with diabetic polyneuropathy; F31.9 Bipolar disorder, unspecified; G89.29 Other chronic pain; D46.9 Myelodysplastic syndrome, unspecified; F41.9 Anxiety disorder, unspecified; I11.0 Hypertensive heart disease with heart failure; I50.9 Heart failure, unspecified; M54.50 Low back pain, unspecified; Z86.73 Personal history of transient ischemic attack (TIA), and cerebral infarction without residual deficits; Z86.711 Personal history of pulmonary embolism
CPT/HCPCS: 36415; 70450-TC; 70496-TC; 70498-TC; 71045-TC-FY; 72170-TC-FY; 74018-TC-FY; 76705-TC; 80053; 80061; 80307; 81003; 82140; 82550; 82803; 82962; 83036; 83605; 83735; 84443; 84484; 85025; 85610; 85730; 86850; 86900; 86901; 87040; 93005; 93010; 93306-TC; 93970-TC; 99291; C9803-CS; G0378; J0475; U0003; U0005

== ENCOUNTER 2023-08-22 12:07 | Emergency (ER) | payer OTHER ==
[2023-08-22 12:50] VITALS: BP 131/50; PULSE 93; RESP 16; TEMP 98.3; BMI 32.4
[2023-08-22 14:46] LABS: BASO % 0.6 % (0-2.0); EOS % 0.3 % (0-4.5); HEMATOCRIT 36.3 % (32.4-45.2); HEMOGLOBIN 11.7 GM/dL (10.7-15.3); LYMPH % 21.1 % (8-40); MCH 29.8 pg (25.7-33.7); MCHC 32.3 g/dl (32.0-36.0); MEAN CELL VOLUME 92.4 fl (80-96); MEAN PLT VOLUME 10.5 fl (7.5-11.1); MONO % 5.3 % (3.8-10.2); NEUT % 72.7 % (42.8-82.8); RBC 3.93 M/mm3 (3.60-5.2); RDW 13.7 % (11.6-15.6); WHITE BLOOD COUNT 14.8 K/mm3 (4.0-10.0)
[2023-08-22 14:49] LABS: PLATELET COUNT 155 10^3/uL (134-434)
[2023-08-22 15:04] LABS: POTASSIUM 4.1 mmol/L (3.5-5.1)
[2023-08-22 15:06] LABS: ALBUMIN 3.6 g/dl (3.4-5.0); BLOOD UREA NITROGEN 21.5 mg/dL (7-18); MAGNESIUM 1.9 mg/dL (1.8-2.4)
[2023-08-22 15:09] LABS: CREATININE 0.9 mg/dL (0.55-1.3); PHOSPHOROUS 2.7 mg/dL (2.5-4.9)
[2023-08-22 15:10] LABS: TOT PROT 6.8 g/dl (6.4-8.2)
[2023-08-22 15:12] LABS: BILIRUBIN,TOTAL 0.3 mg/dL (0.2-1)
[2023-08-22] MEDS ORDERED: ACETAMINOPHEN 325 MG TABLET (FP) ONE (15:25)
[2023-08-22] MEDS: ACETAMINOPHEN 325 MG TABLET (FP) PO ONE (15:32)
== END 2023-08-22 15:46 | disposition home or self-care (01) ==
LOC: JER 12:07
DX: E10.649 Type 1 diabetes mellitus with hypoglycemia without coma (principal); R53.1 Weakness; R42 Dizziness and giddiness
CPT/HCPCS: 36415; 71045-TC-FY; 80053; 82962; 83735; 84100; 84484; 85025; 86850; 86900; 86901; 99284-25

== ENCOUNTER 2025-02-10 19:59 | Emergency (ER) | payer OTHER ==
[2025-02-10 20:23] VITALS: BP 112/51; PULSE 100; RESP 18; TEMP 97.8; BMI 32.1
[2025-02-10] MEDS ORDERED: ACETAMINOPHEN INJECTION 100 ML ONE (22:21)
[2025-02-10 22:23] LABS: ABSOLUTE IMMATURE GRANULOCYTES 0.04 x10^3/uL (0.0-0.031); BASOPHILS # 0.04 x10^3/uL (0.01-0.08); EOSINOPHIL % 1.2 % (0.7-5.8); EOSINOPHILS # 0.14 x10^3/uL (0.04-0.36); MCHC 30.8 g/dl (32.2-35.5); MEAN CELL VOLUME 98.1 fl (79.4-94.8); MEAN PLT VOLUME 11.3 fl (9.4-12.3); MONOCYTE # 0.87 x10^3/uL (0.24-0.86); MONOCYTE % 7.8 % (4.7-12.5); RDW 12.4 % (12.4-16.4)
[2025-02-10] MEDS: ACETAMINOPHEN 1000 MG/100 ML BAG IVPB ONE (22:28)
[2025-02-10 22:58] LABS: CO2 27.0 mmol/L (21-32); GLUCOSE,RANDOM 160.0 mg/dL (74-106)
[2025-02-10 23:01] LABS: CREATININE 0.9 mg/dL (0.55-1.3); SGOT/AST 20.0 U/L (15-37); SGPT/ALT 36.0 U/L (13-61)
[2025-02-10 23:02] LABS: TOT PROT 6.9 g/dl (6.4-8.2)
[2025-02-10 23:04] LABS: ALK PHOS 111.0 U/L (45-117)
[2025-02-10 23:50] LABS: HCV DIAGNOSTIC IN-HOUSE W/RFLX NON-REACTIVE (NONREACTIVE)
[2025-02-11 21:33] LABS: HIV INTERPRETATION NEGATIVE (NEGATIVE)
== END 2025-02-10 23:30 | disposition left against medical advice (07) ==
LOC: JER 19:59
PROC: 3E033NZ Introduction of Analgesics, Hypnotics, Sedatives into Peripheral Vein, Percutaneous Approach (ICD-10-PCS; principal; 2025-02-10)
DX: M54.6 Pain in thoracic spine (principal); M54.50 Low back pain, unspecified; R42 Dizziness and giddiness; E11.40 Type 2 diabetes mellitus with diabetic neuropathy, unspecified; W18.30XA Fall on same level, unspecified, initial encounter
CPT/HCPCS: 36415; 71045-TC-FY; 72125-TC; 72170-TC-FY; 80053; 84484; 85025; 86803; 87389; 93005; 93010; 96374; 99285-25